=== PATIENT | female | born 1960 | race Caucasian/White ===

== ENCOUNTER → 2021-01-24 12:16 | Outpatient (BNVA) | payer SELFPAY | PROVIDERS: Visit Provider Nurse Practitioner Family | DX: M25.571 Pain in right ankle and joints of right foot (principal); M25.561 Pain in right knee; M17.11 Unilateral primary osteoarthritis, right knee; M19.071 Primary osteoarthritis, right ankle and foot | CPT/HCPCS: 73562; 73610 ==

== ENCOUNTER → 2021-02-05 15:17 | Outpatient (BNVA) | payer OTHER, SELFPAY | PROVIDERS: PCP Family Medicine; Referring Provider Family Medicine; Visit Provider Orthopaedic Surgery | DX: M75.50 Bursitis of unspecified shoulder (principal); M75.90 Shoulder lesion, unspecified, unspecified shoulder | CPT/HCPCS: 73030 ==

== ENCOUNTER → 2021-06-06 08:59 | Outpatient (BNVA) | payer OTHER, SELFPAY | PROVIDERS: PCP Family Medicine; Visit Provider Orthopaedic Surgery | DX: Z01.812 Encounter for preprocedural laboratory examination (principal); Z20.822 Contact with and (suspected) exposure to COVID-19 | CPT/HCPCS: 87635 ==

== ENCOUNTER 2021-06-12 09:07 | Observation (INO) | payer OTHER, SELFPAY ==
[2021-05-30 10:47] VITALS: BMI 37.1
--- NOTE | 2021-05-30 16:49 | ANES.PREANE2 ---
Pre-Anesthetic Assessment Pre-Anesthetic Assessment: Height/Weight: Height 1.5 m Weight 83.461 kg Proposed Procedure: Operation Date: 06/12/21 07:00 Proposed Procedures p Total Knee Arthroplasty 33015 M17.11(Right) - Gaston Childers MD Was Beta Vicky taken within 24 hours: N/A Was Clonidine taken within 24 hours: N/A Social: Social History: No alcohol and No tobacco Exam: Pre-Anes Outpt Exam: alert, oriented x 3 and regular rate & rhythm Airway: Submandibular: WNL Cervical ROM: WNL MP: 2 Dentition: Chipped Pulmonary: Pulmonary: Asthma and Sleep apnea Metabolic: Metabolic: Morbid obesity and Thyroid Musc/skel: Musc/skel: OA/DJD Anesthetic Plan: ASA status: 3 Anesthesia: Regional (specify below) (SAB with adductor blk) Risk of > 500 ml blood loss (7ml/kg in children): No PFSH Anesthesia PFSH: Medical History Asthma Bursitis and tendinitis of shoulder region GERD (gastroesophageal reflux disease) Hyperlipidemia Hypothyroid Migraine Surgical History H/O arthroscopic knee surgery right H/O elbow surgery right History of section x2 Family History Father Diabetes Stroke CAD (coronary artery disease) Asthma Mother Dementia CAD (coronary artery disease) Brother Asthma Autism Social History Smoking and tobacco status: never smoked Second hand smoke exposure: Yes Smoking risk assessment/counseling performed?: Yes Alcohol intake: former Year of sobriety/quit date alcohol: 1998 Lives independently: Yes Household members: children Marital status: Current occupational status: employed Pets and animals: Yes History of recent travel: No Current gender identity: Female Data Anesthesia Cardiac Studies: No Data to Display
[2021-06-12] VITALS (17 sets, daily range): BP systolic 95–149; BP diastolic 2–88; PULSE 56–92; RESP 16–20; TEMP 36.1–37; O2SAT 93–100
[2021-06-12 06:05] LABS: OR HCG Qualitative Urine Negative (Negative)
[2021-06-12] MEDS: sodium chloride 0.9% 1,000 ML 30 ML IV (06:05)
[2021-06-12] MEDS: CELEcoxib 200 mg Capsule 400 MG PO ×2 (06:08)
[2021-06-12] MEDS: oxyCODONE 20 mg ER (12 HR) Tablet PO (06:09)
[2021-06-12] MEDS: acetaminophen 500 mg Tablet 1000 MG PO ×3 (06:10→17:08)
[2021-06-12] MEDS: midazolam 1 mg/mL INJ 2 mL 2 MG IVP (06:30)
--- NOTE | 2021-06-12 06:40 | P.ANESUD_ITS ---
Pre-Anesthetic Update Pre-Anesthetic Assessment: Date of Surgery/Procedure: 06/12/21 Preop Julia gnosis: Osteoarthritis Right knee Proposed Procedure: Operation Date: 06/12/21 07:00 Proposed Procedures p Total Knee Arthroplasty 17674 M17.11(Right) - Gaston Childers MD Any changes to Pre-Anesthetic Assessment?: No Last Intake: Intake Last Liquid Date 06/11/21 Last Liquid Time 21:00 Last Solid Date 06/11/21 Last Solid Time 20:15 Labs Last 48hrs: Laboratory Results - last 48 hr 06/12/21 05:44 Urine HCG, Qual Negative Vitals: Temperature 98.1 F 06/12/21 05:55 Temperature Source Temporal Artery S can 06/12/21 05:55 Pulse Rate 75 06/12/21 05:55 Respiratory Rate 16 06/12/21 06:09 Respiratory Effort 06/12/21 06:09 Respiratory Depth Normal 06/12/21 06:09 Respiratory Patter n 06/12/21 06:09 Blood Pressure 149/88 06/12/21 05:55 Blood Pressure Shannon n 108 06/12/21 05:55 Pulse Oximetry 99 06/12/21 06:09 Oxygen Delivery Me thod 06/12/21 05:55 Exam: Pre-Anes Outpt Exam: alert, oriented x 3, clear to auscultation bilaterally and regular rate & rhythm Cardiac Studies: No Data to Display
--- NOTE | 2021-06-12 06:41 | ANES.PROC ---
Anesthesia Procedures Procedure/Date: 06/12/21 Nerve Block ^: Nerve Block 1: Main Anesthesia: general anesthesia Time Out Performed: No Consent: requested by attending/covering physician, from patient, risks and benefits reviewed and patient agrees to proceed Nerve block location: adductor canal (R) Anesthesia monitors applied: pulse oximetry, EKG, BP cuff and oxygen Nerve block position: supine Anesthetic Used: ropivicaine 0.5% and with decadron (4 mg) Amount of anesthesia used (mL): 30 Ultrasound used to: recognize landmarks and visualize and ID femerol nerve Nerve Stimulator Used?: No Interscalene/Femoral BLK: 4 stimuplex 21 g needle used for position and inplane approach, visualize local anesthetic spread and no vascular puncture identified Injection: neg aspiration of heme Patient Tolerated Procedure: well Complications: none
--- NOTE | 2021-06-12 06:50 | P.HP_ITS ---
Same Day Surgery H&P Indication for Procedure/HPI DATE OF PROCEDURE: June 12, 2021 CHIEF COMPLAINT/INDICATIONFOR SURGICAL PROCEDURE: Severe osteoarthritis right knee. Patient with severe pain with weightbearing and unable to work. Here for elective right total knee arthroplasty PREOP DIAGNOSIS: Osteoarthritis Right knee PLANNED PROCEDRUE: Operation Date: 06/12/21 07:00 Proposed Procedures p Total Knee Arthroplasty 11647 M17.11(Right) - Gaston Childers MD Medications/Allergies* Home Medications Medication Instructions Recorded Confirmed Type famotidine 20 mg tablet 20 mg PO DAILY 12/06/20 06/12/21 History budesonide-formoterol HFA 160 2 puff INHALATION BID 03/27/21 06/12/21 History mcg-4.5 mcg/actuation aerosol inhaler montelukast [Singulair] 10 mg PO QPM 06/12/21 06/12/21 History Allergies/Adverse Reactions Allergy/AdvReac Type Severity Reaction Status Date / Time zolmitriptan [From Zomig] Allergy Severe brain Verified 06/12/21 05:47 swelling Pertinent History/Comorbid Conditions* Medical History (Updated 03/27/21 @ 12:04 by Amaris Andrade MD) Asthma Bursitis and tendinitis of shoulder region GERD (gastroesophageal reflux disease) Hyperlipidemia Hypothyroid Migraine Surgical History (Updated 12/26/20 @ 09:51 by Amaris Andrade MD) H/O arthroscopic knee surgery right H/O elbow surgery right History of section x2 Family History (Updated 12/06/20 @ 09:36 by Laury Melo LPN) Diabetes Father CAD (coronary artery disease) Father Mother Autism Brother Dementia Mother Stroke Father Asthma Father Brother Social History Smoking and tobacco status: never smoked Second hand smoke exposure: Yes Smoking risk assessment/counseling performed?: Yes Alcohol intake: former Year of sobriety/quit date alcohol: 1998 Lives independently: Yes Household members: children Marital status: Current occupational status: employed Pets and animals: Yes History of recent travel: No Current gender identity: Female Pertinent Exam Findings alert, oriented x 3, clear to auscultation bilaterally and regular rate & rhythm Recommendations Surgery/Procedure today Coding Level of Care Code Acute Registered Pharmacist for Jamil Rajan
[2021-06-12] MEDS: tranexamic acid 1,000 mg/10mL SDV 1000 MG IRRIGATION (07:35)
[2021-06-12] MEDS: EPINEPHrine 1 mg/mL INJ XX (07:36)
[2021-06-12] MEDS: ketorolac 30 mg/mL INJ IM (07:36)
--- NOTE | 2021-06-12 08:56 | XR_ITS ---
WS: [id number] Exam: XR knee RT 1-2V 65566 Date/Time of Exam: 06/12/2021 8:58 AM Reason For Exam: Right Total Knee arthroplasty A total knee prosthesis is in place in excellent position. Postoperative changes in the adjacent soft tissues. XR/XR knee RT 1-2V 99172 IMPRESSION: 1. Total knee replacement in excellent position.
--- NOTE | 2021-06-12 08:57 | PM.OP ---
Operative Report Date of procedure: June 12, 2021 Pre-op Diagnosis: Osteoarthritis Right knee Post-op diagnosis: same Post-op Findings: Same Procedure Done: Right total knee arthroplasty Implants: [employer] total knee arthroplasty components were used includin) Size 3 triathalon cruciate retaining femoral component 2) Size 3 Tritanium tibial component 3) 29 mm /9 mm thickness Tritanium asymetric patella 4) Size 3/9 mm thickness CS tibial bearing insert Pathology: none sent Surgeon: Gaston Childers Anesthesia: General and Nerve Block (Adductor canal block) Estimated blood loss (mL): 200 Findings: Patient had eburnated bone over the medial femoral patella and trochlea Condition: stable Disposition: PACU Procedure: The patient was taken to the operating room. Patient was given 1 g of tranexamic acid . The above anesthesia provided by the anesthesia service. A timeout was performed. The patient was prepped and draped in the usual fashion with the lower extremity exposed. A anterior incision was made, midline, from a point proximal to the patella to the distal tibial tubercle. The knee was entered through a medial parapatellar approach. The patella could be displaced laterally and the knee flexed. The patellar fat pad was resected to provide better visibility. Retractors were placed medially and laterally adjacent to the tibial plateau. The femoral canal was drilled in line with the longitudinal axis of the femur. Intramedullary femoral guide for used to make a distal femoral cut in 5 degrees of valgus, resecting 8 mm from the more prominent condyle. Next the extra medullary tibial guide was placed in alignment with the longitudinal axis of the tibia. The cutting guides were set to remove just over 9 mm from the high tibial plateau. The proximal tibia was then cut. The femoral measuring guide was then placed over the distal femur. Rotation was verified checking the relationship of the guide to the condyle and the trochlear groove. The femur was measured and cut for the desired femoral component. The desired tibial baseplate was then chosen. A trial reduction with the femur tibial baseplate and polyethylene was done, assuring that the knee was stable throughout full motion. Ligament balancing a release of the deep medial collateral ligament and removal of medial osteophyte.The tibia was prepared for the tibial baseplate. Patellar thickness was then measured. The patella was cut removing articular cartilage and prepared for appropriate size patellar button. surfaces were cleaned with a gentamicin/tranexamic acid solution. The femur tibia and patella were then press-fit into place. The posterior capsule and collateral ligaments were then injected with a solution of 100 mL of 0.2% ropivacaine, 1 mL of a 1:1000 epinephrine solution, 30 mg of Toradol, and 1 g of tranexamic acid. final polyethylene component was then snapped into place into the tibia. The extensor retinaculum was closed with a running 1 Stratafix.. The subcutaneous tissues were closed with 2-0 Vicryl and the skin was closed with a running 4-0 Stratafix. The wound was covered with a Dermabond Prinio dressing. It was covered with 4xrs and a compressive Tubigauae was applied. The patient was taken to recovery room in stable condition.
[2021-06-12] MEDS: sodium chloride 0.9% 1,000 ML 100 ML IV ×2 (10:08→19:48)
[2021-06-12] MEDS: levothyroxine 112 mcg Tablet PO (10:08)
[2021-06-12] MEDS: CELEcoxib 200 mg Capsule PO ×2 (10:08→22:30)
[2021-06-12] MEDS: gabapentin 300 mg Capsule PO ×2 (10:08→17:08)
[2021-06-12] MEDS: sennosides-docusate Tablet 2 TAB PO ×2 (10:08→17:08)
[2021-06-12] MEDS: famotidine 20 mg Tablet PO (10:08)
[2021-06-12] MEDS: ondansetron 2 mg/ML SDV 2 mL 4 MG IVP ×2 (12:51→23:31)
--- NOTE | 2021-06-12 13:12 | ANE.PACU2 ---
Inpatient post-anesthesia follow up: Airway intact: Yes Vital signs: Temperature 97.7 F Pulse Rate 82 Respiratory Rate 16 Blood Pressure 113/78 Pulse Oximetry 96 Oxygen Delivery Me thod Room Air Oxygen Flow Rate 8 Fraction of Inspir ed Oxygen Hydration adequate: Yes Nausea and vomiting: No Pain level: 3 Mental status: Baseline
[2021-06-12] MEDS: montelukast sodium 10 mg Tablet PO (17:08)
[2021-06-12] MEDS: oxyCODONE 5 mg IR Tab/Cap PO (17:08)
[2021-06-12] MEDS: albuterol 8 gm MDI 2 PUFF INHALATION (20:16)
--- NOTE | 2021-06-12 20:49 | PC.NURSE ---
i reported low temp and pulse to nurse 97.4 56
[2021-06-12 22:43] LABS: Glucose Point of Care 129 mg/dL (70-110)
--- NOTE | 2021-06-12 22:58 | CTR_ITS ---
PROCEDURE INFORMATION: Exam: CT Head Without Contrast Exam date and time: 06/12/2021 10:58 PM Age: 60 years old Clinical indication: Visual disturbance; Additional info: Vision changes/slurring TECHNIQUE: Imaging protocol: Computed tomography of the head without contrast. Radiation optimization: All CT scans at this facility use at least one of these dose optimization techniques: automated exposure control; mA and/or kV adjustment per patient size (includes targeted exams where dose is matched to clinical indication); or iterative reconstruction. COMPARISON: No relevant prior studies available. RADIATION DOSE METRICS: Total DLP (mGy-cm): 748.86 FINDINGS: Brain: No acute intracranial hemorrhage or mass effect. No definite acute infarct by CT. MRI could be more sensitive/specific for detection, as clinically directed. Cerebral ventricles: Ventricle size is normal for age. Paranasal sinuses: Included paranasal sinuses are essentially clear. Mastoid air cells: No significant acute finding. Vasculature: Vascular calcifications in the internal carotid and vertebral basilar systems. Bones/joints: No definite acute skull fracture. CT/CT head wo con* 90729 IMPRESSION: 1. No acute intracranial hemorrhage or mass effect. 2. No definite acute infarct by CT, see above. 3. Other findings discussed above. Radiation Dose CTDIVOL = (mGy): DLP = 748.86 (mGy-cm)
--- NOTE | 2021-06-12 23:41 | PC.NURSE ---
Pt at shift change and initial assessment behavior was WNL, only pt complaint was dizziness intermittently. During a med pass patient seemed very dazed/confused and was slurring words and trailing off sentences. Pt stated she felt weird, and very dizzy. Pt could not look up to give me direct eye contact without wincing. Pt looked cross-eyed on examination, pupils sluggish. Extremity function WNL, and patient oriented to name, place. Was asked twice the year to which she responded 2000 each time. No pain meds have been given since 1699. Vitals from the beginning of the night had been trending down since dayshift with HR in the 50s and BP 95/62. At time of event pt BP 130/78 HR 56. Charge nurse notified and assessed patient as well to confirm findings and the doctor was called. Head CT ordered. Pt at this time, okay - still nauseous and vomiting. Zofran given. Awaiting CT results. Will monitor closely.
[2021-06-13] VITALS (12 sets, daily range): BP systolic 94–113; BP diastolic 47–71; PULSE 65–102; RESP 14–18; TEMP 36.3–37; O2SAT 93–100
[2021-06-13 03:00] LABS: Hemoglobin 10.4 g/dL (11.5-15.3)
[2021-06-13] MEDS: oxyCODONE 5 mg IR Tab/Cap PO ×3 (05:14→20:11)
[2021-06-13] MEDS: sodium chloride 0.9% 1,000 ML 100 ML IV ×2 (05:16→15:14)
[2021-06-13] MEDS: CELEcoxib 200 mg Capsule PO ×2 (08:31→22:42)
[2021-06-13] MEDS: acetaminophen 500 mg Tablet 1000 MG PO ×2 (08:32→17:39)
[2021-06-13] MEDS: famotidine 20 mg Tablet PO (08:32)
[2021-06-13] MEDS: levothyroxine 112 mcg Tablet PO (08:32)
[2021-06-13] MEDS: gabapentin 300 mg Capsule PO ×2 (08:32→17:39)
[2021-06-13] MEDS: sennosides-docusate Tablet 2 TAB PO ×2 (08:32→17:39)
[2021-06-13] MEDS: ondansetron 2 mg/ML SDV 2 mL 4 MG IVP (08:35)
[2021-06-13] MEDS: albuterol 8 gm MDI 2 PUFF INHALATION ×2 (08:46→19:40)
--- NOTE | 2021-06-13 10:24 | PC.CHAP ---
Pastoral Care Encounter/Spiritual Assessment Type of Contact [] Declined tank hoop bender visit [] Patient/Family/Request visit [] Outpatient visit [] Follow-up visit [] Physician referral [] Code/Alert [x] Routine visit [] Staff referral [] Actively dying [] Patient sleeping [] Family support [] [] Out of room [] Palliative care [] [x] Receiving care in room [] Pre-surgical visit [] Trauma [] Long length of stay [] ICU visit [] Other: Relational/Emotional Strength [x] Patient feels connected with others/family/visitors/staff [] Distress [] Loneliness/isolation [] Abandonment Spirituality of Patient [x] Person of Pauline [] Attends Evangelical of their Pauline [x] Believes in Prayer [] Reads Bible or Synagogue materials [] There are Spiritual issues to be addressed Laundry Route Driver Interventions [x] Prayer [x] Active listening [x] Non-anxious presence [x] Spiritual/emotional support [] Crisis/trauma care [x] Spiritual counseling [] Bereavement support [] Provided bereavement packet [] Provided Bible/devotional materials [] Provided toy/stuffed animal, coloring book to patient or family member [] Provided Communion [] Anointing/[place] [] Salvation [x] Completed spiritual assessment [] Other: Impact on Illness or Injury [] Angry [] Fearful [x] Anxious [] Often cries [] Exhaustion [] Unable to work [] Unable to attend pentecostalism [] Unable to walk/stand [] Unable to read [] Unable to drive [] Unable to eat/drink [] Unable to sleep [] Unable to be with family [] Patient intubated [] Other: Summary Surgery removed toe going to need some rehabhas a good attitude feels good going home and rehab from there Time spent with patient 10 mins
--- NOTE | 2021-06-13 17:36 | P.PN_ITS ---
Subjective Subjective: Interval history: Trudi's nausea has resolved. She has been up with therapy. No specific complaints. Vitals/I&O/Wt Last Vital Signs Temp 98.6 F 06/13/21 15:53 Pulse 65 06/13/21 15:53 Resp 14 06/13/21 15:53 BP 103/55 06/13/21 15:53 Pulse Ox 99 06/13/21 15:53 06/13/21 06/13/21 06/13/21 06:59 14:59 22:59 Intake Total 1380 / 3045 660 / 660 996.667 / 1656.667 Output Total 500 / 1100 600 / 600 Balance 880 / 1945 660 / 660 396.667 / 1056.667 Physical Exam Narrative: EXAM NARRATIVE: Right knee incision clean and dry. No swelling right knee or calf Data : 06/13/21 02:52 A&P Assessment and plan (1) Status post right knee replacement: Continue to work with therapy. Should be ready for discharge tomorrow. Family considering intermediate. Status: Acute Attestations Medical Necessity Statement*: Needs additional therapy prior to discharge. Will try for discharge tomorrow. Coding Level of Care Code Acute Tire Servicer for Jamil Rajan Diagnoses Status post right knee replacement Z96.651
[2021-06-13] MEDS: montelukast sodium 10 mg Tablet PO (17:39)
[2021-06-13] MEDS: tizanidine 4 mg Tablet 2 MG PO (20:06)
[2021-06-14] VITALS (10 sets, daily range): BP systolic 88–97; BP diastolic 50–60; PULSE 67–88; RESP 14–18; TEMP 36.5–36.7; O2SAT 96–100
[2021-06-14] MEDS: sodium chloride 0.9% 1,000 ML 100 ML IV (01:21)
[2021-06-14] MEDS: albuterol 8 gm MDI 2 PUFF INHALATION (07:40)
--- NOTE | 2021-06-14 07:41 | PM.PN ---
Subjective Subjective: Interval history: Pain control good. No further nausea Vitals/I&O/Wt Last Vital Signs Temp 97.7 F 06/14/21 03:20 Pulse 74 06/14/21 03:20 Resp 16 06/14/21 03:20 BP 92/60 06/14/21 03:20 Pulse Ox 99 06/14/21 03:20 06/13/21 06/14/21 06/14/21 22:59 06:59 14:59 Intake Total 1476.667 / 2136.667 1360 / 3496.667 Output Total 600 / 600 400 / 1000 Balance 876.667 / 1536.667 960 / 2496.667 Physical Exam Narrative: EXAM NARRATIVE: The knee incision is clean and free of drainage. There is no swelling in the calf or thigh. Data : 06/13/21 02:52 A&P Assessment and plan (1) Status post right knee replacement: is doing quite well. Originally in clinic plans were made for discharge home with daughter however she has now changed her mind and is looking for a custodial. Thus far we have been unable to find an accepting custodial facility. Status: Acute Attestations Medical Necessity Statement*: No need for ongoing hospitalization. Awaiting discharge plans per community mental health social worker Coding Level of Care Code Acute Complex Care Nurse for Jamil Rajan Diagnoses Status post right knee replacement Z96.651
--- NOTE | 2021-06-14 07:54 | PM.DCS ---
Discharge Providers Date of Admission: 06/12/21 09:07 Date of Discharge: June 15, 2021 Attending Provider at Admission: Gaston Childers MD Attending Provider at Discharge: Gaston Childers MD Primary Care Provider: Fernando Burns DO Diagnoses at Discharge Discharge Diagnosis (1) Status post right knee replacement: Status: Acute Reason for Visit Reason for Visit: total knee Hospital Course Hospital Course The patient tolerated surgery well. They remained hemodynamically stable. They was begun on aspirin and foot pumps for DVT prophylaxis. The patient was mobilized with therapy beginning the day of surgery and by the first postoperative day independent with the walker over short distances. Initial plans were for discharge home to the care of her family however once admitted the patient requested transfer to a nursing home facility. Over several days efforts were made to find an accepting facility or no such facility could be obtained. She ultimately was discharged on June 14, 2021. Physical Exam Narrative: EXAM NARRATIVE: On the day of discharge his knee incision was clean. They had no drainage. There is minimal swelling in the thigh and knee and the calf. No distal neurovascular deficits were noted Discharge Data Data Completed and Pending: Completed Studies During Hospitalization Category Date Time Status CT head wo con* 7 0450 Stat Cat Scan 06/12/21 22:58 Completed XR knee RT 1-2V 7 4159 Routine Exams 06/12/21 08:56 Completed Vitals: Last Vital Signs Temp 97.7 F 06/14/21 03:20 Pulse 82 06/14/21 07:43 Resp 16 06/14/21 07:40 BP 92/60 06/14/21 03:20 Pulse Ox 96 06/14/21 07:40 Discharge Plan Discharge Patient Disposition: Home Condition: Stable Prescriptions: New acetaminophen 500 mg Tablet 1,000 mg PO Q8H 14 Days Qty: 84 RF: 0 celecoxib 200 mg Capsule 200 mg PO Q12H 14 Days Qty: 28 RF: 0 gabapentin 300 mg Capsule 300 mg PO BID 7 Days Qty: 14 RF: 0 oxycodone 5 mg Tablet 5 mg PO Q4H PRN (Reason: Moderate Pain) 7 Days Qty: 30 RF: 0 aspirin 325 mg Tablet,Delayed Release (Dr/Ec) 325 mg PO DAILY Qty: 30 RF: 0 Continued famotidine 20 mg tablet 20 mg PO DAILY RF: 0 budesonide-formoterol [Symbicort] 160-4.5 mcg/actuation HFA aerosol inhaler 2 puff inhalation BID RF: 0 levothyroxine 112 mcg tablet 112 mcg PO DAILY Qty: 90 RF: 3 tizanidine 2 mg capsule 2 mg PO Q6H PRN (Reason: muscle spasticity) Qty: 30 RF: 11 mupirocin 2 % ointment 1 applic topical BID Qty: 22 RF: 0 albuterol sulfate [Ventolin HFA] 90 mcg/actuation HFA aerosol inhaler 2 inh inhalation Q8H PRN (Reason: bronchospasm) Qty: 8.5 RF: 5 ipratropium-albuterol 0.5 mg-3 mg(2.5 mg base)/3 mL solution for nebulization See Rx Instructions .ROUTE .COMPLEX Qty: 180 RF: 3 Singulair 10 mg Tablet 10 mg PO QPM RF: 0 Discharge Orders: Discharge Order (Routine); Ordered 06/14/21 Ordered By: Gatson Childers Other Ambulatory Orders: DME: Sami (Order) Location: None Selected Ordered By: Gaston Childers DME: Walker (Order) Location: None Selected Ordered By: Gaston Childers Physical Therapy Eval and Treat Outpatient (Order) Timeframe: 3 Weeks Facility: [facility] - Location: Physical Therapy Ordered By: Gaston Childers Referrals: Outpatient Physical Therapy at [facility] [Other] (The Outpatient Physical therapy will call you to setup at date & time for therapy. They can set it up for therapy at the [facility].) Gaston Childers MD [Physician] - 06/18/21 3:15 pm Discharge Diet: Advance as tolerated Discharge Activity: Limit activity as instructed Patient Instructions: Aspirin (By mouth), Gabapentin (By mouth), Celecoxib (By mouth), Joint Replacement Surgery (DC), Opioid Safety Activity Restrictions/Additional Instructions: Okay to shower Keep Tubigauze sleeve in place for swelling. Okay to remove for hygiene. Apply FirstIce up to 20 min/hr for pain and swelling Take Celebrex twice a day for the next 15 days for pain , discontinue other anti-inflammatories Take Neurontin twice a day for 7 days. Take Tylenol 500mg (1-2 tabs) as needed 3 times a day for mild pain take oxycodone for breakthrough pain. Exercises per physical therapy. May weight-bear as tolerated on total knee arthroplasty Discharge Attestations Time Spent in Discharge Care*: other Quality Metrics Clinical Quality Measures During this hospital stay, did patient experience: None Coding Level of Care Code Acute [facility] KEILA note Diagnoses Status post right knee replacement Z96.651
[2021-06-14] MEDS: levothyroxine 112 mcg Tablet PO (08:22)
[2021-06-14] MEDS: sennosides-docusate Tablet 2 TAB PO ×2 (08:22→16:54)
[2021-06-14] MEDS: gabapentin 300 mg Capsule PO ×2 (08:22→16:54)
[2021-06-14] MEDS: famotidine 20 mg Tablet PO (08:22)
[2021-06-14] MEDS: oxyCODONE 5 mg IR Tab/Cap PO ×2 (08:22→14:21)
[2021-06-14] MEDS: tizanidine 4 mg Tablet 2 MG PO (08:22)
[2021-06-14] MEDS: acetaminophen 500 mg Tablet 1000 MG PO ×2 (09:07→16:54)
[2021-06-14] MEDS: CELEcoxib 200 mg Capsule PO ×2 (09:07→21:35)
[2021-06-14] MEDS: polyethylene glycol 3350 Pkt 17 gm PO (14:21)
--- NOTE | 2021-06-14 15:00 | PC.CHAP ---
Pastoral Care Encounter/Spiritual Assessment Type of Contact [] Declined farm operations technical director visit [] Patient/Family/Request visit [] Outpatient visit [xx] Follow-up visit [] Physician referral [] Code/Alert [xx] Routine visit [] Staff referral [] Actively dying [] Patient sleeping [] Family support [] [] Out of room [] Palliative care [] [] Receiving care in room [] Pre-surgical visit [] Trauma [] Long length of stay [] ICU visit [] Other: Relational/Emotional Strength [xx] Patient feels connected with others/family/visitors/staff [] Distress [] Loneliness/isolation [] Abandonment Spirituality of Patient [xx] Person of Pauline [] Attends Hindu of their Pauline [xx] Believes in Prayer [] Reads Bible or Jehovah'S Witness materials [] There are Spiritual issues to be addressed Graphics Specialist Interventions [xx] Prayer [xx] Active listening [xx] Non-anxious presence [] Spiritual/emotional support [] Crisis/trauma care [] Spiritual counseling [] Bereavement support [] Provided bereavement packet [] Provided Bible/devotional materials [] Provided toy/stuffed animal, coloring book to patient or family member [] Provided Communion [] Anointing/[place] [] Salvation [xx] Completed spiritual assessment [] Other: Impact on Illness or Injury [] Angry [] Fearful [] Anxious [] Often cries [] Exhaustion [xx] Unable to work [] Unable to attend pentecostal [xx] Unable to walk/stand [] Unable to read [] Unable to drive [] Unable to eat/drink [] Unable to sleep [] Unable to be with family [] Patient intubated [] Other: Summary Patient stated she is concerned her insurance won't cover therapy in a [facility] facility which she will need after discharge from hospital due to knee replacement and fact that she/family live a primitive homestead lifestyle which requires walking up steps and to an outhouse. She stated she is discussing her situation with health care social worker and medical staff to try to get physical therapy necessary for her recovery. Time spent with patient 7 minutes
[2021-06-14] MEDS: montelukast sodium 10 mg Tablet PO (16:54)
[2021-06-15] VITALS (9 sets, daily range): BP systolic 93–115; BP diastolic 56–74; PULSE 76–91; RESP 15–19; TEMP 36.7–36.9; O2SAT 95–100
[2021-06-15] MEDS: oxyCODONE 5 mg IR Tab/Cap PO ×2 (00:32→16:51)
[2021-06-15] MEDS: acetaminophen 500 mg Tablet 1000 MG PO ×2 (01:09→09:42)
[2021-06-15] MEDS: albuterol 8 gm MDI 2 PUFF INHALATION (08:51)
[2021-06-15] MEDS: gabapentin 300 mg Capsule PO (09:42)
[2021-06-15] MEDS: famotidine 20 mg Tablet PO (09:42)
[2021-06-15] MEDS: levothyroxine 112 mcg Tablet PO (09:42)
[2021-06-15] MEDS: CELEcoxib 200 mg Capsule PO (09:42)
--- NOTE | 2021-06-15 16:56 | PC.NURSE ---
PT HAS DONE WELL FOR ME TODAY. PT HAS HAD MINIMAL COMPLAINTS OF PAIN. PT IS DOING GOOD GETTING UP AND AMBULATING WITH WALKER. PT WILL DISCHARGE TODAY. PAIN MEDICATION WAS GIVEN TO PT. DISCHARGE PAPERWORK GONE OVER WITH PT. ALL QUESTIONS ANSWERED. IV HAS BEEN REMOVED. PT TOLERATED WELL. JUST WAITING FOR PTS RIDE. THEN THIS NURSE AND THE AID WILL ASSIST PT OUT OF HOSPITAL WITH HER BELONGINGS (WALKER & BEDSIDE COMMODE).
--- NOTE | 2021-06-17 14:35 | PC.SOCIAL ---
discharge follow up call made, spoke with patient. patient reports she is in a lot of pain. went over new medications. the pharmacy didn't given patient aspirin, gabapentin, or celebrex. ticket writer called [facility], they have those medications ready, ladjill on the phone was unsure why patient didn't get the medications when she picked up the oxycodone. ticket writer let patient know the medications are ready, her daughter will pick those medications up today. patient is aware of follow up appointment 10-[address] Childers. Patient is using ice as directed. patient denies concerns with incision.
== END 2021-06-15 17:21 | disposition home or self-care (01) ==
LOC: MEDSURG 09:08
PROVIDERS: Admitting Provider Orthopaedic Surgery; PCP Family Medicine; Visit Provider Orthopaedic Surgery
PROC: (CPT 27447; principal; 2021-06-12 07:00)
DX: M17.11 Unilateral primary osteoarthritis, right knee (principal); G47.30 Sleep apnea, unspecified; J45.909 Unspecified asthma, uncomplicated; E66.01 Morbid (severe) obesity due to excess calories; Z68.37 Body mass index [BMI] 37.0-37.9, adult; E03.9 Hypothyroidism, unspecified; E78.5 Hyperlipidemia, unspecified; Z82.49 Family history of ischemic heart disease and other diseases of the circulatory system; Z83.3 Family history of diabetes mellitus
CPT/HCPCS: 27447; 36415; 36416; 64447; 70450; 73560; 76942; 81025; 82962; 84703; 85018; 94640; 96374; 97110; 97116; 97161; 97165; 97530; 97535; C1776; G0378; J0171; J0690; J1100; J1580; J1885; J2250; J2370; J2405; J2704; J2795; J3010; J3490; J3535; J7030

== ENCOUNTER 2021-07-15 06:00 | Outpatient (RCR) | payer OTHER, SELFPAY | END 2021-08-13 23:59 | disposition home or self-care (01) | LOC: GPT 06:00 | PROVIDERS: PCP Family Medicine; Visit Provider Orthopaedic Surgery | DX: Z96.651 Presence of right artificial knee joint (principal); M17.11 Unilateral primary osteoarthritis, right knee | CPT/HCPCS: 97032; 97110; 97112; 97116; 97161; 97164; 97530; 97760 ==

== ENCOUNTER 2021-08-14 06:00 | Outpatient (RCR) | payer OTHER, SELFPAY | END 2021-08-19 23:59 | disposition home or self-care (01) | LOC: GPT 06:00 | PROVIDERS: PCP Family Medicine; Visit Provider Orthopaedic Surgery | DX: M17.11 Unilateral primary osteoarthritis, right knee (principal); Z96.651 Presence of right artificial knee joint | CPT/HCPCS: 97110 ==

== ENCOUNTER → 2021-08-21 14:27 | Outpatient (BNVA) | payer OTHER, SELFPAY | PROVIDERS: PCP Family Medicine; Visit Provider Orthopaedic Surgery | DX: Z96.651 Presence of right artificial knee joint (principal) | CPT/HCPCS: 73560; 73565 ==

== ENCOUNTER → 2022-04-30 09:38 | Outpatient (BNVA) | payer OTHER, SELFPAY | PROVIDERS: PCP Family Medicine; Visit Provider Nurse Practitioner Family | DX: E78.2 Mixed hyperlipidemia (principal); E03.9 Hypothyroidism, unspecified | CPT/HCPCS: 80053; 80061; 84443; 85025 ==

== ENCOUNTER 2022-05-21 09:20 | Outpatient (CLI) | payer OTHER, SELFPAY ==
--- NOTE | 2022-05-21 09:33 | MM_ITS ---
WS: [id number] Bilateral screening 3D tomosynthesis digital mammogram, 05/21/2022 Clinical Data: SCREENING Comparison: None. Findings: The breast parenchymal pattern shows fat replacement. No spiculated masses or clustered calcification s are seen. There are no secondary signs of carcinoma. There is an enlarged lymph node in the left ax illa seen on the MLO view measuring 3.3 cm. There are calcifications within this lymph node. Recommen d left ML view and left axillary ultrasound. MM/[place] [id number] Impression: 1. Negative bilateral mammogram unchanged. 2. Recommend annual screening mammograms. BIRADS: 0-Incomplete: Need additional imaging evaluation FOLLOW UP: See Report The CAD baggage checker was used.
== END 2022-05-21 09:21 | disposition home or self-care (01) ==
PROVIDERS: PCP Family Medicine; Visit Provider Family Medicine
DX: Z12.31 Encounter for screening mammogram for malignant neoplasm of breast (principal); M21.612 Bunion of left foot; M21.611 Bunion of right foot
CPT/HCPCS: 73630; 77063; 77067

== ENCOUNTER 2022-06-25 12:29 | Outpatient (CLI) | payer OTHER, SELFPAY ==
--- NOTE | 2022-06-25 13:08 | US_ITS ---
WS: [id number] Left breast ultrasound, 06/25/2022 Clinical Data: ABNORMAL MAMMOGRAM Comparison: Mammograms, 05/21/2022, left breast mammogram 06/25/2022 Findings: In the left axilla there is a typical lymph node which measures 2.26 x 0.79 x 2.50 cm. No abnormal ma sses are seen. Calcifications are seen. US/US breast LT limited* [id number] Impression: 1. Left axillary lymph node. 2. Return to annual screening mammograms BIRADS: 2-Benign FOLLOW UP: 1 Year Follow-up
--- NOTE | 2022-06-25 13:08 | MM_ITS ---
WS: [id number] Left breast diagnostic 3D tomosynthesis digital mammogram, 06/25/2022 Clinical Data: ABNORMAL MAMMOGRAM Comparison: 05/21/2022 Findings: The lymph node in the left axilla as well imaged. Although enlarged it shows no abnormal characterist ics there are no abnormal calcifications or irregularities associated with this lymph node MM/[place] [id number] Impression: 1. Left axillary lymph node 2. Left breast ultrasound will be performed BIRADS: 2-Benign FOLLOW UP: See Report The CAD order checker packer processer was used.
== END 2022-06-25 12:30 | disposition home or self-care (01) ==
PROVIDERS: PCP Family Medicine; Visit Provider Nurse Practitioner Family
DX: R92.8 Other abnormal and inconclusive findings on diagnostic imaging of breast (principal)
CPT/HCPCS: 76642; 77061

== ENCOUNTER → 2022-07-24 16:55 | Outpatient (BNVA) | payer OTHER, SELFPAY | PROVIDERS: PCP Family Medicine; Visit Provider Nurse Practitioner Family | DX: R11.10 Vomiting, unspecified (principal); R19.7 Diarrhea, unspecified | CPT/HCPCS: 87400 ==

== ENCOUNTER → 2022-09-24 08:54 | Outpatient (BNVA) | payer OTHER, SELFPAY | PROVIDERS: PCP Family Medicine; Visit Provider Specialist | DX: M54.16 Radiculopathy, lumbar region (principal); M25.552 Pain in left hip | CPT/HCPCS: 73502 ==

== ENCOUNTER → 2022-11-17 08:58 | Outpatient (BNVA) | payer OTHER, SELFPAY | PROVIDERS: PCP Family Medicine; Visit Provider Specialist | DX: M18.12 Unilateral primary osteoarthritis of first carpometacarpal joint, left hand (principal) | CPT/HCPCS: 73130 ==

== ENCOUNTER 2022-11-17 10:47 | Outpatient (CLI) | payer OTHER, SELFPAY | END 2022-11-17 10:48 | disposition home or self-care (01) | LOC: SPT 10:47 | PROVIDERS: PCP Family Medicine; Visit Provider Specialist | DX: Z46.89 Encounter for fitting and adjustment of other specified devices (principal); M18.12 Unilateral primary osteoarthritis of first carpometacarpal joint, left hand | CPT/HCPCS: 97760; L3924 ==

== ENCOUNTER → 2022-12-30 10:22 | Outpatient (BNVA) | payer OTHER, SELFPAY | PROVIDERS: PCP Family Medicine; Visit Provider Nurse Practitioner Family | DX: E78.2 Mixed hyperlipidemia (principal); J45.20 Mild intermittent asthma, uncomplicated | CPT/HCPCS: 80053; 80061; 85025 ==

== ENCOUNTER → 2023-02-23 14:28 | Outpatient (BNVA) | payer MEDICAID, SELFPAY | PROVIDERS: PCP Family Medicine; Visit Provider Family Medicine | DX: R10.9 Unspecified abdominal pain (principal); M54.50 Low back pain, unspecified; M54.16 Radiculopathy, lumbar region | CPT/HCPCS: 81003 ==

== ENCOUNTER → 2023-04-20 11:03 | Outpatient (BNVA) | payer MEDICAID, SELFPAY | PROVIDERS: PCP Family Medicine; Visit Provider Specialist | DX: M17.12 Unilateral primary osteoarthritis, left knee; G89.29 Other chronic pain | CPT/HCPCS: 73560; 73565 ==

== ENCOUNTER → 2023-05-21 13:43 | Outpatient (BNVA) | payer MEDICAID, SELFPAY | PROVIDERS: PCP Family Medicine; Referring Provider Family Medicine; Visit Provider Orthopaedic Surgery | DX: Z01.818 Encounter for other preprocedural examination; M48.062 Spinal stenosis, lumbar region with neurogenic claudication; M43.16 Spondylolisthesis, lumbar region | CPT/HCPCS: 36415; 72100; 80053; 81001; 85025 ==

== ENCOUNTER → 2023-06-03 09:40 | Outpatient (BNVA) | payer MEDICAID, SELFPAY | PROVIDERS: PCP Family Medicine; Visit Provider Family Medicine | DX: Z01.818 Encounter for other preprocedural examination (principal) | CPT/HCPCS: 81000 ==

== ENCOUNTER 2023-06-10 16:46 | Observation (INO) | payer MEDICAID, SELFPAY ==
[2023-06-09 09:17] VITALS: BMI 44.4
[2023-06-10] VITALS (17 sets, daily range): BP systolic 108–143; BP diastolic 56–103; PULSE 63–88; RESP 16–20; TEMP 36.2–36.7; O2SAT 92–100
--- NOTE | 2023-06-10 | XR_ITS ---
WS: [id number] Lumbar spine, C-arm fluoroscopy views, 06/10/2023 Clinical Data: L4-5 decompression, or pic Comparison: Lumbar spine, 05/21/2023 Findings: Dr. Ace performed a lumbar decompression. Impression: Lumbar decompression.
--- NOTE | 2023-06-10 13:25 | W.PM.OPSUD ---
Surgery/Procedure H&P Update DATE OF PROCEDURE: June 10, 2023 DATE H&P PERFORMED: 06/03/23 H&P UPDATE INFORMATION: I have reviewed H&P completed within last 30 days, I have examined patient prior to procedure and No changes to prior documentation PREOP DIAGNOSIS: L4-5 spinal listhesis, left lumbosacral radiculopathy PLANNED PROCEDURE: Operation Date: 06/10/23 14:00 Proposed Procedures p Lumbar Spine Decompression/left L4-5 minimally invasive decompression(Left) - Isaac Ace DO
[2023-06-10] MEDS: sodium chloride 0.9% 1,000 ML 30 ML IV (13:28)
[2023-06-10] MEDS: ceFAZolin 2,000 MG in sodium chloride 0.9% (plus) 50 ML 100 MG IV ×2 (13:36→20:18)
--- NOTE | 2023-06-10 13:43 | ANES.PREANE2 ---
Pre-Anesthetic Assessment Height/Weight: Height 1.5 m Weight 99.79 kg Temp Pulse Resp BP Pulse Ox O2 Del Method 97.3 F L 72 18 143/103 96 Room Air 06/10/23 13:06/10/23 13:06/10/23 13:06/10/23 13:09 06/10/23 13:06/10/23 13:09 Preop Diagnosis: L4-5 spinal listhesis, left lumbosacral radiculopathy Operation Date: 06/10/23 14:00 Proposed Procedures p Lumbar Spine Decompression/left L4-5 minimally invasive decompression(Left) - Isaac Ace, DO Familial anesthetic complications: none Was Beta Vicky taken within 24 hours: N/A Was Clonidine taken within 24 hours: N/A Last intake: Intake Last Liquid Date 06/09/23 Last Liquid Time 19:00 Last Solid Date 06/09/23 Last Solid Time 19:00 Social No alcohol and No tobacco Exam alert, oriented x 3, clear to auscultation bilaterally and regular rate & rhythm Airway Submandibular: within normal limits Cervical ROM: within normal limits Mallampati: Class II Dentition: chipped Pulmonary Asthma and Sleep Apnea GI Gastroesophageal Reflux Disease Metabolic Hyperlipidemia, Morbid Obesity and Thyroid Disease Musc/skel Lower Back Pain and Osteoarthritis/DJD Anesthetic Plan ASA status: 3 Anesthesia: General Medications/Allergies Home Medications Medication Instructions Recorded Confirmed Last Taken Type CMC brace-left hand #1 ea 11/17/22 05/21/23 Unknown Rx levothyroxine 112 mcg tablet 112 mcg PO DAILY #90 tabs 12/30/22 06/09/23 06/10/23 Rx (Synthroid) miscellaneous medical supply 1 ea miscellaneous DIRECTED #1 01/05/23 06/09/23 05/18/23 Rx ea budesonide-formoterol HFA 160 2 puff inhalation BID #10.2 grams 02/23/23 06/09/23 06/10/23 Rx mcg-4.5 mcg/actuation aerosol inhaler (Symbicort) ascorbate calcium (vitamin C) 500 500 mg PO DAILY 03/04/23 06/09/23 05/18/23 History mg tablet biotin 1 mg capsule 1 mg PO DAILY 03/04/23 06/09/23 05/18/23 History black cohosh 200 mg capsule 200 mg PO DAILY 03/04/23 06/09/23 05/18/23 History cholecalciferol (vitamin D3) PO DAILY 03/04/23 05/21/23 05/18/23 History famotidine 20 mg tablet (Pepcid) 20 mg PO DAILY 03/04/23 06/09/23 06/09/23 History mecobalamin (vitamin B12) 1,000 1,000 mcg PO DAILY 03/04/23 06/09/23 05/18/23 History mcg chewable tablet multivitamin (Daily Multi-Vitamin 1 tab PO DAILY 03/04/23 06/09/23 05/18/23 History tablet) tocophersolan (vitamin E TPGS) 75 unit PO 03/04/23 05/21/23 05/18/23 History unit/mL oral drops Ventolin HFA 90 mcg/actuation 2 inh inhalation Q8H PRN 04/20/23 06/09/23 06/06/23 Rx aerosol inhaler (albuterol sulfate) bronchospasm #18 grams Allergies Allergy/AdvReac Type Severity Reaction Status Date / Time zolmitriptan [From Zomig] Allergy Severe brain Verified 06/03/23 09:29 swelling Current Medications Generic Name Dose Route Start Last Admin Trade Name Freq PRN Reason Stop Dose Admin Sodium Chloride 1,000 mls @ 30 mls/hr 06/10/23 12:45 06/10/23 13:28 Sodium Chloride 0.9% IV 06/11/23 12:44 30 mls/hr .Q24H JESSICA Administration PFSH Anesthesia Medical History Asthma Bursitis and tendinitis of shoulder region GERD (gastroesophageal reflux disease) Hyperlipidemia Hypothyroid Migraine Tendinopathy of left rotator cuff Tendinopathy of right rotator cuff Surgical History H/O arthroscopic knee surgery right H/O elbow surgery right History of section x2 Family History Father Diabetes Stroke CAD (coronary artery disease) Asthma Mother Dementia CAD (coronary artery disease) Brother Asthma Autism Social History Smoking and tobacco status: never smoked Alcohol intake: former Year of sobriety/quit date alcohol: 1998 Substance/Drug Use: never Lives independently: Yes Household members: children Marital status: Current occupational status: employed Pets and animals: Yes Do you think of yourself as: Straight/Heterosexual Current gender identity: Female Data Anesthesia Cardiac Studies: No Data to Display
[2023-06-10] MEDS: lidocaine-epi 2% 20 mL INJ INJECTION (14:26)
--- NOTE | 2023-06-10 14:39 | P.OP_ITS ---
Operative Report Date of procedure: June 10, 2023 Pre-op diagnosis: Lumbar stenosis with neurogenic claudication Post-op diagnosis: same Procedure done: L4-5 laminectomy with partial facetectomy Surgeon: Isaac Ace DO Information Technology Advisor: Bj Lafleur Information Technology Advisor: The surgical scrub technician, Bj Lafleur, ALYSSA was needed for his expertise under the microscope. He was important and necessary throughout the procedure to complete in a safe and timely manner. He assisted with patient positioning prepping and draping tissue retraction suctioning of the operative field protection of the dural sac and tissue closure Estimated blood loss (mL): 25 Complications: dural tear Procedure: L4-5 laminectomy with partial facetectomy Patient is brought to the operative suite. After undergoing anesthesia they are placed in the prone position. All areas of impingement are well padded. Patient is then prepped and draped in the normal sterile fashion. A skin incision is made over the l4/5 level. This is confirmed under c-arm guidance. A series of dilators are passed and the tubular retractor is docked on the L4 lamina. A bovie is used to clear the soft tissue off the lamina and the L 4/5 facet joint. A high speed justine is then used to perform the laminectomy and take down the medial aspect of the L 4/5 facet joint. A kerrison rongeure was then used to take down the remaining lamina and smooth the edge of the laminectomy up to the point where the ligamentum flavum attaches. Attention was then brought to the medial aspect of the facet joint. The remaining medial aspect of the superior and inferior aspect of the facet joint were taken down with the kerrison from the pedicle of L4 to L 5. The facet joint had significant hypertrophy. Attention was then brought to the Ligamentum Flavum. The ligament was taken down from the lamina of L4 to L5 and out medially to the remaining facet joint. The ligament was thick and scarred down to the dura. The dura was then exposed. There was a small tear that occurred. This was later patched with DuraGen and there was no leaking after this. And DuraSeal was placed at the end as well. The L4 nerve was then traced with a curette out the L4/5 foramen and found to be adequately decompressed. The L5 nerve was traced with a curette around the L5 pedicle. The lateral recess was opened with a kerrison helping to further decompress the L5 nerve. Wound is then irrigated copiously with saline and surgiflo is used to stop any bleeding. The tubular retractor is removed and the wound is closed with vicryl and monocryl suture. Glue is then used to protect the wound. A sterile dressing is then placed. Patient was then placed in the supine position and transferred to the PACU in stable condition.
[2023-06-10] MEDS: HYDROcodone-acetaminophen 5-325 mg Tablet 2 TAB PO (15:39)
--- NOTE | 2023-06-10 16:39 | ANE.PACU2 ---
Inpatient post-anesthesia follow up: Airway intact: Yes Vital signs: Temperature 97.2 F Pulse Rate 66 Respiratory Rate 18 Blood Pressure 134/90 Pulse Oximetry 94 Oxygen Delivery Me thod Room Air Oxygen Flow Rate 6 Fraction of Inspir ed Oxygen Hydration adequate: Yes Nausea and vomiting: No Pain level: 3 Mental status: Baseline
[2023-06-10] MEDS: lactated ringers 1,000 ML 90 ML IV (17:40)
[2023-06-10] MEDS: ketorolac 30 mg/mL INJ IVP (17:40)
[2023-06-10] MEDS: docusate sodium 100 mg Capsule PO (17:41)
[2023-06-10] MEDS: budesonide 0.5 mg/2 mL Neb INHALATION (20:06)
[2023-06-10] MEDS: albuterol 2.5 mg/3 mL Neb INHALATION (20:06)
[2023-06-11] VITALS (8 sets, daily range): BP systolic 106–114; BP diastolic 65–71; PULSE 61–84; RESP 16–18; TEMP 36.4–36.6; O2SAT 92–97
[2023-06-11] MEDS: ketorolac 30 mg/mL INJ IVP (01:16)
[2023-06-11] MEDS: lactated ringers 1,000 ML 90 ML IV (05:19)
[2023-06-11] MEDS: ceFAZolin 2,000 MG in sodium chloride 0.9% (plus) 50 ML 100 MG IV (05:20)
[2023-06-11] MEDS: HYDROcodone-acetaminophen 5-325 mg Tablet PO (07:19)
--- NOTE | 2023-06-11 07:57 | P.PN_ITS ---
Subjective Subjective: POD 1 Patient reports some fuzziness dizziness had a headache through the night. She states her numbness has improved in her legs. She reports back pain. Vitals/I&O/Wt Last Vital Signs Temp 97.6 F 06/11/23 04:06 Pulse 67 06/11/23 07:51 Resp 16 06/11/23 07:51 BP 112/71 06/11/23 07:51 Pulse Ox 96 06/11/23 07:51 O2 Del Method Room Air 06/10/23 20:00 O2 Flow Rate 6 06/10/23 14:41 06/10/23 06/11/23 06/11/23 22:59 06:59 14:59 Intake Total 100 / 150 1050 / 1200 Balance 100 / 130 1050 / 1180 Weight last 48 hrs Weight 220 lb Physical Exam Narrative: Patient presents alert and oriented x3 with a good general appearance normal mood and affect. Normal coordination normal stability. Mild tenderness around the incisional site with the incision appear to be clean and dry. No signs of erythema or drainage. No signs of infection. Patient denies any fevers or c hills. 5/5 motor strength both lower extremities with negative straight leg raise bilaterally. Calves are supple no medial thigh tenderness. Pulses are 2+ at the dorsalis pedis and posterior tibial region. Good capillary refill throughout normal sensation light touch both lower extremities. A&P Assessment and plan (1) Status post lumbar laminectomy: Discussed with the patient if she has a headache to lay flat. Encourage caffeinated products. Physical therapy to work with mobilization. As long as she remains medically stable we will work towards discharge home. We will see her back in the office in 1 week's time for wound check. Discussed at length with her the incidental durotomy and if she has symptoms of headache to lay flat at home as well. Encouraged her to take the incentive spirometer for pulmonary toilet. (2) Incidental durotomy: Attestations Medical Necessity Statement*: Discharge home later this morning if medically stable and no headaches. Coding Level of Care Code Acute Code for Chg Fwd Diagnoses Status post lumbar laminectomy Z98.890 Incidental durotomy G97.41
[2023-06-11] MEDS: albuterol 2.5 mg/3 mL Neb INHALATION ×2 (08:35→11:09)
[2023-06-11] MEDS: levothyroxine 112 mcg Tablet PO (08:44)
[2023-06-11] MEDS: ascorbic acid 500 mg Tablet PO (08:44)
[2023-06-11] MEDS: famotidine 20 mg Tablet PO (08:44)
[2023-06-11] MEDS: docusate sodium 100 mg Capsule PO (08:44)
[2023-06-11] MEDS: cyanocobalamin 1,000 mcg Tablet 1000 MCG PO (08:44)
[2023-06-11] MEDS: multivitamin therapeutic Tablet 1 TAB PO (08:45)
--- NOTE | 2023-06-11 10:12 | PC.CHAP ---
Pastoral Care Encounter/Spiritual Assessment Type of Contact [] Declined mercury cracking tester visit [] Patient/Family/Request visit [] Outpatient visit [] Follow-up visit [] Physician referral [] Code/Alert [x] Routine visit [] Staff referral [] Actively dying [] Patient sleeping [] Family support [] [] Out of room [] Palliative care [] [x] Receiving care in room [] Pre-surgical visit [] Trauma [] Long length of stay [] ICU visit [] Other: Relational/Emotional Strength [x] Patient feels connected with others/family/visitors/staff [] Distress [] Loneliness/isolation [] Abandonment Spirituality of Patient [x] Person of Pauline [] Attends Nondenominational of their Pauline [x] Believes in Prayer [] Reads Bible or Uatsdin materials [] There are Spiritual issues to be addressed [place] Interventions [x] Prayer [x] Active listening [x] Non-anxious presence [x] Spiritual/emotional support [] Crisis/trauma care [x] Spiritual counseling [] Bereavement support [] Provided bereavement packet [] Provided Bible/devotional materials [] Provided toy/stuffed animal, coloring book to patient or family member [] Provided Communion [] Anointing/[place] [] Salvation [x] Completed spiritual assessment [] Other: Impact on Illness or Injury [] Angry [] Fearful [] Anxious [] Often cries [] Exhaustion [] Unable to work [] Unable to attend anabaptist [] Unable to walk/stand [] Unable to read [] Unable to drive [] Unable to eat/drink [] Unable to sleep [] Unable to be with family [] Patient intubated [] Other: Summary infection not sure well go home when infection clears up has a good attitude Time spent with patient 10 mins
== END 2023-06-11 11:30 | disposition home or self-care (01) ==
LOC: MEDSURG 06-11 08:00
PROVIDERS: Admitting Provider Orthopaedic Surgery; PCP Family Medicine; Visit Provider Orthopaedic Surgery
PROC: (CPT 63005; principal; 2023-06-10 13:50)
DX: M48.062 Spinal stenosis, lumbar region with neurogenic claudication (principal); G97.41 Accidental puncture or laceration of dura during a procedure; G47.30 Sleep apnea, unspecified; K21.9 Gastro-esophageal reflux disease without esophagitis; J45.909 Unspecified asthma, uncomplicated; E78.5 Hyperlipidemia, unspecified; E66.01 Morbid (severe) obesity due to excess calories; Z68.41 Body mass index [BMI] 40.0-44.9, adult; E03.9 Hypothyroidism, unspecified
CPT/HCPCS: 63047; 72020; 76000; 94640; 97116; 97161; G0378; J0690; J1100; J1885; J2405; J2704; J2710; J3010; J3490; J7030; J7120; J7613; J7626

== ENCOUNTER → 2023-08-19 13:43 | Outpatient (BNVA) | payer MEDICAID, SELFPAY | PROVIDERS: PCP Family Medicine; Visit Provider Nurse Practitioner | DX: Z96.651 Presence of right artificial knee joint (principal); M25.561 Pain in right knee | CPT/HCPCS: 73560; 73565 ==

== ENCOUNTER 2023-09-03 10:35 | Outpatient (CLI) | payer MEDICAID, SELFPAY ==
--- NOTE | 2023-09-03 10:37 | MM_ITS ---
WS: [id number] BILATERAL SCREENING DIGITAL TOMOSYNTHESIS MAMMOGRAM WITH CAD HISTORY: SCREENING COMPARISON: 06/25/2022 and 05/21/2022 Bilateral CC and MLO views with tomosynthesis and synthetic mammography submitted. Computer aided det ection analyzed. Breast composition: There are scattered areas of fibroglandular density. No suspicious masses, microc alcifications or architectural distortion. Intramammary lymph nodes. Benign calcifications. IMPRESSION: MM/[place] [id number] BI-RADS: 2-Benign FOLLOW UP: 1 Year Follow-up
== END 2023-09-03 10:36 | disposition home or self-care (01) ==
LOC: RAD 10:35
PROVIDERS: PCP Family Medicine; Visit Provider Family Medicine
DX: Z12.31 Encounter for screening mammogram for malignant neoplasm of breast (principal)
CPT/HCPCS: 77063; 77067

== ENCOUNTER → 2023-09-30 15:17 | Outpatient (BNVA) | payer MEDICAID, SELFPAY | PROVIDERS: PCP Family Medicine; Visit Provider Specialist | DX: M17.12 Unilateral primary osteoarthritis, left knee (principal); M25.561 Pain in right knee; Z68.41 Body mass index [BMI] 40.0-44.9, adult | CPT/HCPCS: 73560; 73565 ==

== ENCOUNTER → 2023-10-27 14:52 | Outpatient (BNVA) | payer MEDICAID, SELFPAY | PROVIDERS: PCP Family Medicine; Visit Provider Orthopaedic Surgery | DX: Z47.89 Encounter for other orthopedic aftercare; R20.2 Paresthesia of skin; M54.50 Low back pain, unspecified | CPT/HCPCS: 72100 ==

== ENCOUNTER 2024-01-05 14:04 | Outpatient (CLI) | payer MEDICAID, SELFPAY ==
--- NOTE | 2024-01-05 14:30 | MR_ITS ---
WS: [id number] MRI LUMBAR SPINE NONCONTRAST TECHNIQUE: Sagittal T1, T2 and STIR imaging. Axial T1 and T2 imaging. CLINICAL INFORMATION: back pain COMPARISON: Outside MRI 04/27/2023 FINDINGS: Tiny disc protrusions in the cervical spine on the wire sawyer imaging at C4-C5 and C5-C6 with mild central canal stenosis. Mild lumbar curve. Grade 1 anterolisthesis L4 on L5. L1-L2: Mild annular bulging. Moderate facet arthropathy. Spinal canal and foramen are patent. L2-L3: Mild annular bulging with a small RIGHT subarticular protrusion. Slight effacement of the vent ral thecal sac. Slight narrowing of the RIGHT subarticular recess with moderate facet arthropathy. Mi ld RIGHT foraminal narrowing. LEFT foramen is patent. L3-L4: Mild disc bulging with endplate ridging. Moderate facet arthropathy. Mild LEFT and no signific ant RIGHT foraminal narrowing. L4-L5: Grade 1 anterolisthesis unchanged. Mild central canal stenosis with impingement of the subarti cular recess bilaterally. Moderate facet arthropathy. Foramen are patent. Susceptibility artifact fro m prior postoperative changes in the lamina. L5-S1: No significant disc bulging. Moderate facet arthropathy. Spinal canal and foramen are patent. Visualized pelvic bony structures: Normal. Paravertebral soft tissues: Normal. Partially visualized nabothian cyst in the cervix. IMPRESSION: 1. Mild lumbar curve. Grade 1 anterolisthesis L4 on L5 is unchanged with prior laminoplasty changes in the posterior elements 2. Mild central canal stenosis L4-5 with narrowing of the subarticular recess appears unchanged. 3. Disc bulging L2-3 appears slightly progressed with a RIGHT subarticular protrusion. This impinges the RIGHT subarticular recess and traversing RIGHT L3 nerve root with mild central canal stenosis. 4. Moderate facet arthropathy L4-L5 and L5-S1. 5. Small disc protrusions in the cervical spine at C4-C5 and C5-C6. This could be further evaluated cervical spine MRI.
== END 2024-01-05 14:05 | disposition home or self-care (01) ==
LOC: RAD 14:04
PROVIDERS: PCP Family Medicine; Visit Provider Orthopaedic Surgery
DX: M54.50 Low back pain, unspecified (principal); M48.061 Spinal stenosis, lumbar region without neurogenic claudication; M47.816 Spondylosis without myelopathy or radiculopathy, lumbar region
CPT/HCPCS: 72148

== ENCOUNTER → 2024-01-07 15:15 | Outpatient (BNVA) | payer MEDICAID, SELFPAY | PROVIDERS: PCP Family Medicine; Visit Provider Internal Medicine Pulmonary Disease | DX: J45.20 Mild intermittent asthma, uncomplicated (principal); G47.33 Obstructive sleep apnea (adult) (pediatric); R06.02 Shortness of breath | CPT/HCPCS: 36415; 82785; 85025; 86003 ==

== ENCOUNTER 2024-01-20 11:21 | Outpatient (CLI) | payer MEDICAID, SELFPAY ==
[2024-01-20 11:39] VITALS: PULSE 98; RESP 18; O2SAT 98
[2024-01-20] MEDS: albuterol 2.5 mg/3 mL Neb INHALATION (11:39)
[2024-01-20 11:43] VITALS: PULSE 99
== END 2024-01-20 11:22 | disposition home or self-care (01) ==
PROVIDERS: PCP Family Medicine; Visit Provider Internal Medicine Pulmonary Disease
DX: R06.02 Shortness of breath (principal)
CPT/HCPCS: 94060; 94618; 94726; 94729; J7613

== ENCOUNTER → 2024-04-21 14:01 | Outpatient (BNVA) | payer MEDICAID, SELFPAY | PROVIDERS: PCP Family Medicine; Visit Provider Orthopaedic Surgery | DX: M48.061 Spinal stenosis, lumbar region without neurogenic claudication | CPT/HCPCS: 36415; 72110; 80053; 81003; 81015; 85025; 87077; 87086; 87186 ==

== ENCOUNTER 2024-05-16 17:00 | Outpatient (CLI) | payer MEDICAID, SELFPAY ==
[2024-05-16 18:06] LABS: Charge for UA Resulting for Rev
[2024-05-16 18:08] LABS: Bilirubin Urine Negative (Negative); Blood Urine Negative (Negative); Glucose Urine UA Negative (Normal); Ketones Urine Trace (Negative); Leukocyte Esterase Urine 1+ (Negative); Nitrate Urine Negative (Negative); Protein Urine Trace (Negative); Urine Appearance Clear (CLEAR); Urine Color Yellow (Yellow); pH Urine 5.5 (5-7)
[2024-05-16 18:47] LABS: RBC Urine 0-4 /hpf (0-2); Specific Gravity, Urine 1.032 (1.005-1.030); Squamous Epithelial Cell Urine 15-25 /hpf (0-5); UA Manual Slide Review YES
[2024-05-16 18:48] LABS: Add Urine Culture? No; Bacteria Urine TRACE /hpf; Mucus Urine 2+ /hpf
== END 2024-05-16 17:01 | disposition home or self-care (01) ==
PROVIDERS: PCP Family Medicine; Visit Provider Orthopaedic Surgery
DX: M43.16 Spondylolisthesis, lumbar region (principal); M47.27 Other spondylosis with radiculopathy, lumbosacral region; M47.816 Spondylosis without myelopathy or radiculopathy, lumbar region; M54.50 Low back pain, unspecified
CPT/HCPCS: 81003; 81015

== ENCOUNTER → 2024-06-09 12:42 | Outpatient (BNVA) | payer MEDICAID, SELFPAY | PROVIDERS: PCP Family Medicine; Visit Provider Nurse Practitioner Family | DX: S80.862A Insect bite (nonvenomous), left lower leg, initial encounter (principal); W57.XXXA Bitten or stung by nonvenomous insect and other nonvenomous arthropods, initial encounter | CPT/HCPCS: 86160; 86618; 86666; 86668; 86757 ==

== ENCOUNTER 2024-06-14 06:00 | Outpatient (RCR) | payer MEDICAID, SELFPAY | END 2024-07-14 23:59 | disposition home or self-care (01) | LOC: GPT 06:00 | PROVIDERS: PCP Family Medicine; Visit Provider Orthopaedic Surgery | DX: M54.9 Dorsalgia, unspecified (principal); G89.29 Other chronic pain | CPT/HCPCS: 97112; 97140; 97161 ==

== ENCOUNTER → 2024-07-14 16:58 | Outpatient (BNVA) | payer MEDICAID, SELFPAY | PROVIDERS: PCP Family Medicine; Visit Provider Orthopaedic Surgery | DX: M43.16 Spondylolisthesis, lumbar region (principal) | CPT/HCPCS: 36415; 80053; 81001; 85025 ==

== ENCOUNTER 2024-07-15 06:00 | Outpatient (RCR) | payer MEDICAID, SELFPAY | END 2024-08-13 23:59 | disposition home or self-care (01) | LOC: GPT 06:00 | PROVIDERS: PCP Family Medicine; Visit Provider Orthopaedic Surgery | DX: M54.9 Dorsalgia, unspecified (principal); G89.29 Other chronic pain | CPT/HCPCS: 97110; 97112; 97140 ==

== ENCOUNTER → 2024-08-03 09:55 | Outpatient (BNVA) | payer MEDICAID, SELFPAY | PROVIDERS: PCP Family Medicine; Visit Provider Family Medicine | DX: Z01.818 Encounter for other preprocedural examination (principal) | CPT/HCPCS: 81003 ==

== ENCOUNTER → 2024-08-15 15:27 | Outpatient (BNVA) | payer MEDICAID, SELFPAY | PROVIDERS: PCP Family Medicine; Visit Provider Family Medicine | DX: Z01.818 Encounter for other preprocedural examination (principal) | CPT/HCPCS: 80053; 81000; 85025 ==

== ENCOUNTER 2024-08-22 19:54 | Inpatient (IN) | payer MEDICAID, SELFPAY ==
[2024-08-22] VITALS (18 sets, daily range): BP systolic 95–162; BP diastolic 62–97; PULSE 75–83; RESP 14–20; TEMP 36.2–36.4; O2SAT 90–100; BMI 44.8; BMI 46.2
[2024-08-22] MEDS: sodium chloride 0.9% 1,000 ML 30 ML IV (12:54)
[2024-08-22 12:59] LABS: Basophils % 0.5 %; Eosinophils # 0.2 10^3/uL (0.0-0.8); Eosinophils % 3.6 %; Hematocrit 41.8 % (36-47); Lymphocytes # 2.3 10^3/uL (0.8-4.8); Lymphocytes % 38.6 %; Mean Corpuscular HGB Conc 32.8 g/dL (30-55); Mean Corpuscular Hemoglobin 31.8 pg (27-33); Mean Platelet Volume 9.8 fL (7.4-10.4); Monocytes # 0.5 10^3/uL (0.2-0.9); Monocytes % 8.6 %; Neutrophils # 2.95 10^3/uL (1.8-7.7); Neutrophils % 48.5 %; Nucleated Red Blood Cells % 0 %; Platelet Count 232 10^3/cmm (157-399); Red Blood Count 4.31 10^6/uL (3.85-5.65); Red Cell Distribution Width 13.1 % (12.1-15.1); White Blood Count 6.07 10^3/uL (3.29-11.43)
--- NOTE | 2024-08-22 13:01 | P.ANESASSM_ITS ---
Pre-Anesthetic Assessment Height/Weight: Height 4 ft 11 in Weight 222 lb Temp Pulse Resp BP Pulse Ox O2 Del Method 97.3 F L 82 17 162/97 96 Room Air 08/22/24 12:41 08/22/24 12:41 08/22/24 12:41 08/22/24 12:41 08/22/24 12:41 08/22/24 12:41 Preop Diagnosis: L4-5 spondylolisthesis; lumbar stenosis neurogenic claudication Operation Date: 08/22/24 14:00 Proposed Procedures p Spinal Fusion PSF(Not Applicable) - Isaac Ace DO s Posterior Lumbar Interbody Fusion PLIF(Not Applicable) - Isaac Ace DO Was Beta Vicky taken within 24 hours: N/A Was Clonidine taken within 24 hours: N/A Last intake: Intake Last Liquid Date 08/22/24 Last Liquid Time 03:00 Last Solid Date 08/21/24 Last Solid Time 20:00 Social No alcohol and No tobacco Exam alert, oriented x 3, clear to auscultation bilaterally and regular rate & rhythm Airway Submandibular: within normal limits Cervical ROM: within normal limits Mallampati: Class I Dentition: full Anesthetic Plan ASA status: 3 Anesthesia: General Other: Patient states that she has experienced PONV in the past NPO since yesterday Recent infection last week, placed on antibiotics which she has completed. Currently is asymptomatic, afebrile History of asthma, controlled with inhalers GERD on Pepcid Denies any cardiac issues Labs reviewed and acceptable for procedure METs greater than 4 Plan for GETA Medications/Allergies Home Medications Medication Instructions Recorded Confirmed Last Taken Type miscellaneous medical supply 1 ea miscellaneous DIRECTED #1 01/05/23 08/18/24 08/18/24 Rx ea mecobalamin (vitamin B12) 1,000 1,000 mcg PO DAILY 03/04/23 08/18/24 08/21/24 History mcg chewable tablet multivitamin (Daily Multi-Vitamin 1 tab PO DAILY 03/04/23 08/18/24 08/21/24 History tablet) cholecalciferol (vitamin D3) 25 25 mcg PO DAILY 06/11/23 08/18/24 08/18/24 History mcg (1,000 unit) capsule (Vitamin D3) cpap supplies #1 ea 08/05/23 07/14/24 Unknown Rx Hinged Knee Brace #1 ea 09/30/23 07/14/24 Unknown Rx inhalational spacing device #1 ea 01/04/24 07/14/24 Unknown Rx (Aerochamber MV spacer) ipratropium 0.5 mg-albuterol 3 mg See Rx Instructions .Route 01/05/24 08/18/24 08/22/24 Rx (2.5 mg base)/3 mL nebulization .COMPLEX #180 mL soln budesonide-formoterol HFA 160 2 puff inhalation BID #10.2 grams 03/16/24 08/18/24 08/22/24 Rx mcg-4.5 mcg/actuation aerosol inhaler (Symbicort) tiotropium bromide 1.25 2 puff inhalation DAILY #4 grams 03/16/24 08/18/24 08/22/24 Rx mcg/actuation mist for inhalation (Spiriva Respimat) diclofenac sodium 1 % topical gel 2 g topical QID #100 grams 04/13/24 08/18/24 08/18/24 Rx Bone Growth Stimulator #1 ea 05/18/24 07/14/24 Unknown Rx albuterol sulfate 90 mcg/actuation 2 puff inhalation Q4H PRN 06/23/24 08/18/24 08/22/24 Rx aerosol inhaler shortness of breath or wheezing #8.5 grams famotidine 20 mg tablet (Pepcid) 40 mg PO BID 08/03/24 08/18/24 08/22/24 History levothyroxine 112 mcg tablet 112 mcg PO DAILY 08/18/24 08/18/24 08/21/24 History montelukast 10 mg tablet 10 mg PO DAILY 08/22/24 08/22/24 08/21/24 History Allergies Allergy/AdvReac Type Severity Reaction Status Date / Time zolmitriptan [From Zomig] Allergy Severe brain Verified 08/18/24 12:59 swelling Current Medications Generic Name Dose Route Start Last Admin Trade Name Freq PRN Reason Stop Dose Admin Sodium Chloride 1,000 mls @ 30 mls/hr 08/22/24 12:45 08/22/24 12:54 Sodium Chloride 0.9% IV 08/23/24 12:44 30 mls/hr .Q24H JESSICA Administration PFSH Anesthesia Medical History BMI 45.0-49.9, adult Acute pain of right knee Tendinopathy of left rotator cuff Tendinopathy of right rotator cuff GERD (gastroesophageal reflux disease) Migraine Hyperlipidemia Hypothyroid Asthma Bursitis and tendinitis of shoulder region Surgical History H/O arthroscopic knee surgery right History of section x2 H/O elbow surgery right Family History Father Diabetes Stroke CAD (coronary artery disease) Asthma Mother Dementia CAD (coronary artery disease) Brother Asthma Autism Social History Smoking and tobacco/nicotine status: never used tobacco/nicotine Alcohol intake: former Year of sobriety/quit date alcohol: 1998 Substance/Drug Use: never Lives independently: Yes Household members: children Marital status: Current occupational status: employed Pets and animals: Yes Do you think of yourself as: Straight/Heterosexual Current gender identity: Female Data Anesthesia 08/22/24 12:50 Short CBC 08/22/24 Range/Units 12:50 WBC 6.07 (3.29-11.43) 10^3/uL Hgb 13.70 (11.27-16.99) g/dL Hct 41.8 (36-47) % MCV 97.0 (85-98) fl Plt Count 232 (157-399) 10^3/cmm Neut % (Auto) 48.5 % Neut # (Auto) 2.95 (1.8-7.7) 10^3/uL Cardiac Studies: 2 No Data to Display
--- NOTE | 2024-08-22 13:56 | W.PM.OPSUD ---
Surgery/Procedure H&P Update DATE OF PROCEDURE: August 22, 2024 DATE H&P PERFORMED: 08/03/24 H&P UPDATE INFORMATION: I have reviewed H&P completed within last 30 days, I have examined patient prior to procedure and No changes to prior documentation PREOP DIAGNOSIS: L4-5 spondylolisthesis; lumbar stenosis neurogenic claudication PLANNED PROCEDURE: Operation Date: 08/22/24 14:00 Proposed Procedures p Spinal Fusion PSF(Not Applicable) - Isaac Ace DO s Posterior Lumbar Interbody Fusion PLIF(Not Applicable) - Isaac Ace DO
[2024-08-22] MEDS: ceFAZolin 2,000 mg SDV 2000 MG IVP ×2 (15:36→23:13)
[2024-08-22] MEDS: lidocaine-epi 1% PF 1:200,000 30 mL SDV INJECTION (16:12)
[2024-08-22] MEDS: VANCOMYCIN ADD-Vantage 1,000 MG VIAL 1000 MG XX (16:46)
[2024-08-22] MEDS: heparin, porcine 1,000 unit/mL INJ 10 mL 10000 UNIT XX (17:20)
--- NOTE | 2024-08-22 18:08 | XR_ITS ---
WS: [id number] Exam: XR lumbar spine 2-3V* [id number] Date/Time of Exam: 08/22/2024 6:08 PM Reason For Exam: OR PICS AP and lateral intraoperative images of the lower lumbar spine are submitted. Images were obtained fo r intraoperative purposes.
--- NOTE | 2024-08-22 18:15 | P.OP_ITS ---
Operative Report Date of procedure: August 22, 2024 Pre-op diagnosis: Lumbar stenosis with neurogenic claudication L4-5 spondylolisthesis Post-op diagnosis: same Procedure done: 1. L4/5 Interbody fusion with posterolateral fusion 2. Instrumentation L4-L5 3. Insertion of Cage at L4/5 4. L4-5 laminectomy with facetectomies 5. use of autograft from same incision 6. allograft 7. Bone marrow aspirate from right iliac crest 8. Use of computer navigation/stereotactic for the spine Surgeon: Isaac Ace DO Estimated blood loss (mL): 150 Procedure: 1. L4/5 Interbody fusion with posterolateral fusion 2. Instrumentation L4-L5 3. Insertion of Cage at L4/5 4. L4-5 laminectomy with facetectomies 5. use of autograft from same incision 6. allograft 7. Bone marrow aspirate from right iliac crest 8. Use of computer navigation/stereotactic for the spine Patient is brought to the operative suite. After undergoing anesthesia, the patient had neuro monitoring attached. Patient was then placed in the prone position on the Casimiro table. All areas of impingement were well-padded. Patient was then prepped and draped in the normal sterile fashion. Skin incision was then made over the L4-L5 disc space. Subperiosteal dissection was made out to the transverse processes of L4 and L5. Next attention was brought to the [employer] bone marrow aspirate kit was used to aspirate bone marrow aspirate. This was done by using the sharp probe to open up the bone. Aspiration was performed and then the blunt probe was then used to dissect down to through the bone tunnel. An aspirating well drawn back a millimeter approximately 20 cc of bone marrow aspirate was used. Admixed with the allograft and autograft bone that will be used. Next attention was brought to placing the computer navigation fiducial. The pins were placed in the right iliac crest. These pins were later removed at the end of the case. The fiducial was then attached to this. The C-arm was then brought in and spun around the patient. The information of the C-arm was then loaded the computer and this was later used for the placement of the pedicle screws. Next attention was brought to placing the pedicle screws. The technique for placing the pedicle screws was to use a drill followed by the gearshift probe. Followed by the ball probe to feel the superior inferior medial lateral joes of the pedicles. Then placement of the screws. Was done at each pedicle. Screws were placed at L4 bilaterally and L5. Next attention was brought to performing the laminectomy ofL4. This was done using the high-speed bur Kerrisons and curettes. Once the lamina was removed and then attention was brought to performing a partial facetectomy on the contralateral side. This was done again using the high-speed bur curettes and Kerrisons. The ligamentum flavum was taken down bilaterally from L4 to L5. Attention was then brought to the facet on the ipsilateral side. The facet was taken down. The L5 nerve was decompressed as it passed around the L5 pedicle. The laminectomy was done for purposes of decompressing the nerve as well as placement of the cage. The L4 nerve was identified as it traversed through the L4 foramen. The thecal sac was identified and retracted. The L4/5 disc base was identified. Using a knife the disc base was opened. And then sequential jass were placed. The first shaver was a 6 and the last shaver was a 9. Using a pituitary and down going curette the endplates were scraped and disc material was removed from the space. Once adequate decompression of the disc base was felt to be had. Osteoamp sponge was packed into the anterior aspect of the disc base. Then a size 10 cage from [employer] was placed after packing osteoamp into the cage. While placing the cage the thecal sac and L5 nerve was protected. C arm was used to ensure that the cages placed in the appropriate position. Attention was then brought to attaching the rods to the screws placed in the L4 bilaterally and L5 bilaterally. Caps were torqued into position. Locking the construct in place. Wound was copiously irrigated and then attention was brought to decorticating the facets and transverse processes laterally. Bone that was taken down from the lamina was used along with osteoamp fibers and sponges were packed into the lateral gutters along the facet joints. This was done bilaterally. Wound was then closed in a layered fashion starting with the thoracolumbar fascia. 0-vicryl was used the sub cutaneous tissue was closed with 2-0 vicryl and skin with 4-0 monocryl. Glue was then used to seal the skin and a steril dressing was applied. Patient was then placed in the supine position. The endotracheal tube was removed and patient was transferred to the PACU in stable condition.
[2024-08-22] MEDS: scopolamine 1.5 Patch 1 PATCH TRANSDERMA (18:57)
--- NOTE | 2024-08-22 20:00 | ANE.PACU2 ---
Inpatient post-anesthesia follow up: Airway intact: Yes Vital signs: Temperature 98.2 F Pulse Rate 84 Respiratory Rate 18 Blood Pressure 106/70 Pulse Oximetry 92 Oxygen Delivery Me thod Room Air Oxygen Flow Rate 1 Fraction of Inspir ed Oxygen Hydration adequate: Yes Nausea and vomiting: No Pain level: 1 Mental status: Baseline
--- NOTE | 2024-08-22 20:00 | PC.NURSE ---
Scopalamine patch present on patient at arrival to [facility] from PACU.
[2024-08-22] MEDS: morphine 4 mg/mL SDV 1 mL 2 MG IVP ×2 (20:06→23:10)
[2024-08-22] MEDS: albuterol 2.5 mg/3 mL Neb INHALATION (22:14)
[2024-08-22] MEDS: lactated ringers 1,000 ML 30 ML IV (23:44)
[2024-08-23] VITALS (16 sets, daily range): BP systolic 93–108; BP diastolic 58–71; PULSE 70–93; RESP 15–18; TEMP 36.4–37; O2SAT 92–98
[2024-08-23] MEDS: morphine 4 mg/mL SDV 1 mL 2 MG IVP (02:09)
[2024-08-23] MEDS: albuterol 2.5 mg/3 mL Neb INHALATION (02:24)
[2024-08-23] MEDS: ceFAZolin 2,000 mg SDV 2000 MG IVP ×2 (06:37→14:04)
--- NOTE | 2024-08-23 07:40 | P.PN_ITS ---
Subjective 2 Subjective: Patient is in bed resting comfortably. Try to get bed last night but could not she said her feet feel numb. However this morning they feel better she is able to move her toes Vitals/I&O/Wt Last Vital Signs Temp 98.6 F 08/23/24 04:39 Pulse 82 08/23/24 04:39 Resp 16 08/23/24 04:39 BP 104/67 08/23/24 04:39 Pulse Ox 95 08/23/24 04:39 O2 Del Method Nasal Cannula 08/23/24 04:39 O2 Flow Rate 2 08/23/24 04:39 08/22/24 08/23/24 08/23/24 22:59 06:59 14:59 Intake Total 1780 / 1780 360 / 2140 Output Total 800 / 800 300 / 1100 Balance 980 / 980 60 / 1040 Weight last 48 hrs Weight 238 lb 3.2 oz Weight 229 lb Weight 222 lb Physical Exam 2 Narrative: Sensation intact moving bilateral lower extremities 5/5 strength. Urinary Catheter Management: Rosen: Cath Placed During This Visit: yes, but has since been removed by the nurse Reason for Continuing Indwelling Catheter: Decision to DC Catheter Urinary Catheter Date of Insertion: 08/22/24 Urinary Catheter Time of Insertion: 15:58 Date Urinary Catheter Removed: 08/23/24 Time Urinary Catheter Discontinued: 06:45 Data 08/22/24 12:50 A&P Assessment and plan (1) Status post lumbar spinal fusion: Postop day #1 lumbar fusion Up with physical therapy Will reevaluate after she gets out of bed. Attestations 2 Medical Necessity Statement*: Pain control Coding Level of Care Code Acute Code for Chg Fwd Diagnoses Status post lumbar spinal fusion Z98.1
[2024-08-23] MEDS: HYDROcodone-acetaminophen 5-325 mg Tablet PO ×4 (07:58→20:45)
[2024-08-23] MEDS: cyanocobalamin 1,000 mcg Tablet 1000 MCG PO (07:59)
[2024-08-23] MEDS: multivitamin therapeutic Tablet 1 TAB PO (07:59)
[2024-08-23] MEDS: montelukast sodium 10 mg Tablet PO (07:59)
[2024-08-23] MEDS: cholecalciferol (vitamin D3) 1,000 unit Tablet 1000 UNIT PO (07:59)
[2024-08-23] MEDS: famotidine 20 mg Tablet 40 MG PO ×2 (07:59→18:05)
[2024-08-23] MEDS: docusate sodium 100 mg Capsule PO ×2 (08:00→18:05)
[2024-08-23] MEDS: levothyroxine 112 mcg Tablet PO (08:00)
[2024-08-23] MEDS: ketorolac 30 mg/mL INJ IVP ×2 (08:00→14:04)
[2024-08-23] MEDS: budesonide 0.5 mg/2 mL Neb INHALATION ×2 (08:27→21:16)
[2024-08-23] MEDS: ipratropium-albuterol 3 mL Neb INHALATION ×4 (08:27→21:16)
--- NOTE | 2024-08-23 10:42 | PC.CHAP ---
Pastoral Care Encounter/Spiritual Assessment Type of Contact [] Declined steam brush operator visit [] Patient/Family/Request visit [] Outpatient visit [] Follow-up visit [] Physician referral [] Code/Alert [x] Routine visit [] Staff referral [] Actively dying [] Patient sleeping [] Family support [] [] Out of room [] Palliative care [] [] Receiving care in room [] Pre-surgical visit [] Trauma [] Long length of stay [] ICU visit [] Other: Relational/Emotional Strength [x] Patient feels connected with others/family/visitors/staff [] Distress [] Loneliness/isolation [] Abandonment Spirituality of Patient [x] Person of Pauline [] Attends Cheondoism of their Pauline [x] Believes in Prayer [] Reads Bible or Church materials [] There are Spiritual issues to be addressed Spot Checker Interventions [x] Prayer [] Active listening [] Non-anxious presence [x] Spiritual/emotional support [] Crisis/trauma care [] Spiritual counseling [] Bereavement support [] Provided bereavement packet [] Provided Bible/devotional materials [] Provided toy/stuffed animal, coloring book to patient or family member [] Provided Communion [] Anointing/[place] [] Salvation [x] Completed spiritual assessment [] Other: Impact on Illness or Injury [] Angry [] Fearful [] Anxious [] Often cries [] Exhaustion [] Unable to work [] Unable to attend yazidism [] Unable to walk/stand [] Unable to read [] Unable to drive [] Unable to eat/drink [] Unable to sleep [] Unable to be with family [] Patient intubated [] Other: Summary Time spent with patient 5 min
[2024-08-23] MEDS: diclofenac 1% Topical Gel 100 gm 1 APPLIC TOPICAL ×3 (11:03→18:08)
[2024-08-24] VITALS: BP 98/55; PULSE 96; RESP 17; TEMP 36.7; O2SAT 91
[2024-08-24] MEDS: HYDROcodone-acetaminophen 5-325 mg Tablet PO ×2 (00:32→13:04)
[2024-08-24] MEDS: ketorolac 30 mg/mL INJ IVP (02:17)
[2024-08-24 03:23] VITALS: BP 95/60; PULSE 78; RESP 17; TEMP 36.5; O2SAT 94
--- NOTE | 2024-08-24 06:27 | P.DS_ITS ---
Discharge Providers Date of Admission: 08/22/24 19:54 Date of Discharge: August 24, 2024 Attending Provider at Admission: Isaac Ace DO Attending Provider at Discharge: Isaac Ace DO Primary Care Provider: Fernando Burns DO Diagnoses at Discharge Discharge Diagnosis (1) Status post lumbar spinal fusion: Status: Acute Physical Exam Narrative: Patient is doing well no complaints at this time. She was up ambulating yesterday well. Urinary Catheter Management: Rosen: Cath Placed During This Visit: yes, but has since been removed by the nurse Reason for Continuing Indwelling Catheter: Decision to DC Catheter Urinary Catheter Date of Insertion: 08/22/24 Urinary Catheter Time of Insertion: 15:58 Date Urinary Catheter Removed: 08/23/24 Time Urinary Catheter Discontinued: 06:45 Discharge Data Studies Completed and Pending Completed Studies During Hospitalization Category Date Time Status XR lumbar spine 2-3V* [id number] Routine Exams 08/22/24 18:08 Completed Laboratory Results WBC 6.07 10^3/uL (3.29-11.43) 08/22/24 12:50 RBC 4.31 10^6/uL (3.85-5.65) 08/22/24 12:50 Hgb 13.70 g/dL (11.27-16.99) 08/22/24 12:50 Hct 41.8 % (36-47) 08/22/24 12:50 MCV 97.0 fl (85-98) 08/22/24 12:50 MCH 31.8 pg (27-33) 08/22/24 12:50 MCHC 32.8 g/dL (30-55) 08/22/24 12:50 RDW 13.1 % (12.1-15.1) 08/22/24 12:50 Plt Count 232 10^3/cmm (157-399) 08/22/24 12:50 MPV 9.8 fL (7.4-10.4) 08/22/24 12:50 Neut % (Auto) 48.5 % 08/22/24 12:50 Lymph % (Auto) 38.6 % 08/22/24 12:50 [place]away % (Auto) 8.6 % 08/22/24 12:50 Eos % (Auto) 3.6 % 08/22/24 12:50 Baso % (Auto) 0.5 % 08/22/24 12:50 Neut # (Auto) 2.95 10^3/uL (1.8-7.7) 08/22/24 12:50 Lymph # (Auto) 2.3 10^3/uL (0.8-4.8) 08/22/24 12:50 [place]away # (Auto) 0.5 10^3/uL (0.2-0.9) 08/22/24 12:50 Eos # (Auto) 0.2 10^3/uL (0.0-0.8) 08/22/24 12:50 Baso # (Auto) 0.0 10^3/uL (0.0-0.1) 08/22/24 12:50 Nucleated RBC % (auto) 0 % 08/22/24 12:50 Nucleated RBCs # 0.0 /100WBC 08/22/24 12:50 Blood Type O Positive 08/22/24 12:50 Rho(D) Type Rh positive 08/22/24 12:50 Antibody Screen Negative 08/22/24 12:50 Vitals Last Vital Signs Temp 97.7 F 08/24/24 03:23 Pulse 78 08/24/24 03:23 Resp 17 08/24/24 03:23 BP 95/60 08/24/24 03:23 Pulse Ox 94 08/24/24 03:23 O2 Del Method Room Air 08/24/24 03:23 O2 Flow Rate 1 08/23/24 08:27 Discharge Plan Discharge Patient Disposition: Home Condition: Stable Prescriptions: New hydrocodone-acetaminophen 5-325 mg tablet 1 - 2 tab PO .Q4-6H Qty: 40 0RF Continued miscellaneous medical supply Misc 1 ea miscellaneous DIRECTED Qty: 1 0RF Rx Instructions: please dispense one nebulizer and tubing. diclofenac sodium 1 % gel 2 g topical QID Qty: 100 3RF Rx Instructions: apply to single elbow, wrist or hand; for hand includes palm/fingers/back of hand multivitamin [Daily Multi-Vitamin] Tablet 1 tab PO DAILY mecobalamin (vitamin B12) 1,000 mcg tablet,chewable 1,000 mcg PO DAILY famotidine [Pepcid] 20 mg tablet 40 mg PO BID (DME) Hinged Knee Brace See Rx Instructions .Route .MEDSUPPLY Qty: 1 0RF Rx Instructions: As directed ipratropium-albuterol 0.5 mg-3 mg(2.5 mg base)/3 mL solution for nebulization See Rx Instructions .ROUTE .COMPLEX Qty: 180 3RF Dose Instruction: USE 1 VIAL PER NEBULIZER EVERY 4 HOURS NEEDED FOR SHORTNESS OF BREATH Rx Instructions: USE 1 VIAL PER NEBULIZER EVERY 4 HOURS NEEDED FOR SHORTNESS OF BREATH Spiriva Respimat 1.25 mcg/actuation mist 2 puff inhalation DAILY Qty: 4 3RF budesonide-formoterol [Symbicort] 160-4.5 mcg/actuation HFA aerosol inhaler 2 puff inhalation BID Qty: 10.2 5RF (DME) cpap supplies See Rx Instructions .Route .MEDSUPPLY Qty: 1 5RF Rx Instructions: As directed (DME) Aerochamber MV Spacer See Rx Instructions .Route Qty: 1 0RF Rx Instructions: As directed (DME) Bone Growth Stimulator See Rx Instructions .Route .MEDSUPPLY Qty: 1 0RF Rx Instructions: As directed albuterol sulfate 90 mcg/actuation HFA aerosol inhaler 2 puff inhalation Q4H PRN (Reason: shortness of breath or wheezing) Qty: 8.5 2RF cholecalciferol (vitamin D3) [Vitamin D3] 25 mcg (1,000 unit) Capsule 25 mcg PO DAILY levothyroxine 112 mcg tablet 112 mcg PO DAILY Rx Instructions: TAKE ONE TABLET BY MOUTH ONCE DAILY montelukast 10 mg tablet 10 mg PO DAILY Rx Instructions: TAKE ONE TABLET BY MOUTH ONCE DAILY Discharge Orders: Discharge Order (Routine); Ordered 08/24/24 Ordered By: Isaac Ace Discharge Diet: Advance as tolerated Discharge Activity: Limit activity as instructed Patient Instructions: Acute Wound Care (DC), Opioid Safety, Post Anesthesia Care Activity Restrictions/Additional Instructions: Thank you for [facility] for your care! The following is a list of instructions, from your provider, to follow upon your discharge to ensure you have the optimal recovery from your recent injury orsurgery. Follow-up care is a kirby part of your treatment and safety. Be sure to make and go to all appointments, and call your doctor if you are having problems. If you do not already have a follow-up appointment made, call Dr. Ace office in the next 1-3 days to make follow up appointment for 1 weeks at [phone]. It is also a good idea to know your test results and keep a list of the medicines you take. Medications will be prescribed for you at your provider's discretion. These medications are to be used as instructed; if they are taken more often that prescribed they will not be refilled early and in most cases will not be refilled at all. > When a refill is needed,you should contact delia ken 2-3 business days before your prescription runs out. Medications will NOT be refilled by communications equipment operator providers after hours! > Many pain medications contain Tylenol (Acetaminophen). Do not consume more than 4,000 mg of Tylenol per day in total with any combination ofmedications. > Pain medications can cause constipation. Please use an over the counter stool softener as directed, while taking pain medications. Consulty our local pharmacist with questions or recommendations on stool softeners. If constipation persists, contact our office or your primary care provider. > While under our care,you are not to receive pain medications or other controlled substances from any other provider unless our office is notified and approves. Any attempts to do so will result in refusal to prescribe any further pain medications and possible dismissal from our practice. ? Keep dressing on until seen in 1 week we will change dressing in the clinic. ? Showering is permitted, however we ask that you do not take a bath, sit in a whirlpool / Jacuzzi, or go swimming for 1 month. For only the first 2 days after surgery, lt wilt be necessary for you to cover your wound/dressing with plastic and tape to keep it dry. ? Walking is essential for the healing process after surgery. We wo uld like you to slowly advance your walking. This should be done on relatively flat clear ground (inside or out) or can be done on a treadmill. Remember this goal does not have to happen all at once, slowly increase your distance and duration. This can be broken into more more than one walk per day as tolerated. Patients who walk as directed after surgery rarely require Physical Therapy. In the unlikely event this issue arises your provider will direct hospital staff to make the appropriate arrangements. ? No lifting over 5 pounds {a gallon of milk) or bending/twisting until further notice. Each of these activities places an unnecessary amount of stress onto the body and can impede the delicate healing process. > Instead of bending at the waist, keep your back straight and bend at the knees. > Instead of twisting your torso, keep your back straight and turn your entire body with your feet. ? You may sleep in any position which makes you comfortable. Many p atients find comfort sleeping in a reclining chair. It is not abnormal to have difficulty sleeping for the first several weeks following your surgery. We recommend trying Benadry! or Tylenol PM as directed to help with your sleeping difficulties. Both medications are over the counter and available withoutprescription. ? NO SMOKING!!! Smoking dramatically increases the probability of developing postoperative wound infections. ? Common complaints after lumbar and/or thoracic spine surgery include, but are not limited to: numbness and/or tingling in the legs, pain around the incision and surrounding tissues, muscle spasms, or stiffness of the middle to low back. Contact our office if these symptoms persist or if an acute change occurs. ? No driving for the first 3-5days, and not while taking narcotics until seen at your follow-up appointment and cleared. There are no restrictions for riding on short trips, however if you take a longer trip, arrangements should be made to make regular stops to get out of the vehicle and stretch . ? Swelling is an unfortunate event that will take place with any surgery and is the primary source of your postoperative discomfort. While walking and regular approved activities helps control inflammation, there are additional steps you can take to minimizeswelling. > Place ice over the surgical site and surrounding tissue for twenty minutes, followed by applying a low/medium heat (heating pad) for an additional twenty minutes every 1-2 hours as needed for painrelief. > You may use of over the counter anti-inflammatory medications (Ibuprofen, Motrin, Aleve, Advil, etc) as directed on the package label. These types of medicines wm significantly reduce the amount of discomfort you experience after surgery from swelling. It should be noted that if you have and allergy to any of these medications, or a history of ulcers or kidney disease you should consult you primary care provider prior to starting these medications. Discharge Attestations Time Spent in Discharge Care*: less than 30 min Quality Metrics Clinical Quality Measures [ No reported AMI, CVA or VTE this stay] Coding Level of Care Code Acute Code for Chg Fwd Diagnoses Status post lumbar spinal fusion Z98.1
[2024-08-24 07:40] VITALS: BP 104/65; PULSE 80; RESP 18; TEMP 36.8; O2SAT 93
[2024-08-24 08:00] VITALS: PULSE 85; RESP 18; O2SAT 97
[2024-08-24] MEDS: budesonide 0.5 mg/2 mL Neb INHALATION (08:41)
[2024-08-24] MEDS: ipratropium-albuterol 3 mL Neb INHALATION (08:41)
[2024-08-24] MEDS: multivitamin therapeutic Tablet 1 TAB PO (08:54)
[2024-08-24] MEDS: cyanocobalamin 1,000 mcg Tablet 1000 MCG PO (08:54)
[2024-08-24] MEDS: famotidine 20 mg Tablet 40 MG PO (08:54)
[2024-08-24] MEDS: docusate sodium 100 mg Capsule PO (08:54)
[2024-08-24] MEDS: levothyroxine 112 mcg Tablet PO (08:54)
[2024-08-24] MEDS: montelukast sodium 10 mg Tablet PO (08:54)
[2024-08-24] MEDS: cholecalciferol (vitamin D3) 1,000 unit Tablet 1000 UNIT PO (08:54)
[2024-08-24] MEDS: diclofenac 1% Topical Gel 100 gm 1 APPLIC TOPICAL ×2 (08:55→13:05)
--- NOTE | 2024-08-24 10:02 | PC.SOCIAL ---
CM spoke to patient who states they found her a walker at [employer], and she has a friend building a ramp for her at this time. Discusses BSC and informed her that insurance dont cover a BSC.
[2024-08-24 11:40] VITALS: BP 106/70; PULSE 84; RESP 18; TEMP 36.8; O2SAT 92
--- NOTE | 2024-08-24 14:06 | PC.NURSE ---
Discussed discharge with patient along with additional restrictions and activities. Stated when follow up appointments are, new medications and to continue all home medications. Patient verbalized understanding. Patient is waiting for a ride to take her home.
[2024-08-24 16:27] VITALS: BP 106/70; PULSE 84; RESP 18; TEMP 36.8; O2SAT 92
== END 2024-08-24 14:00 | disposition home or self-care (01) | DRG 402 ==
LOC: MEDSURG 19:54
PROVIDERS: Student in an Organized Health Care Education/Training Program; Admitting Provider Orthopaedic Surgery; PCP Family Medicine; Visit Provider Orthopaedic Surgery
PROC: 0SG00AJ Fusion of Lumbar Vertebral Joint with Interbody Fusion Device, Posterior Approach, Anterior Column, Open Approach (ICD-10-PCS; principal; 2024-08-22 13:40)
PROC: 0SG00AJ Fusion of Lumbar Vertebral Joint with Interbody Fusion Device, Posterior Approach, Anterior Column, Open Approach (ICD-10-PCS; CPT 22612; 2024-08-22 13:40)
DX: M43.16 Spondylolisthesis, lumbar region (principal); M48.062 Spinal stenosis, lumbar region with neurogenic claudication; Z79.51 Long term (current) use of inhaled steroids; K21.9 Gastro-esophageal reflux disease without esophagitis; G43.909 Migraine, unspecified, not intractable, without status migrainosus; E78.5 Hyperlipidemia, unspecified; E03.9 Hypothyroidism, unspecified; J45.909 Unspecified asthma, uncomplicated; Z83.3 Family history of diabetes mellitus; Z82.3 Family history of stroke; Z82.49 Family history of ischemic heart disease and other diseases of the circulatory system; Z82.5 Family history of asthma and other chronic lower respiratory diseases; Z82.0 Family history of epilepsy and other diseases of the nervous system
CPT/HCPCS: 36415; 51702; 72100; 76000; 85025; 86850; 86900; 94640; 97116; 97161; C1713; J0131; J0690; J1100; J1200; J1644; J1885; J2250; J2270; J2371; J2405; J2704; J3010; J3370; J3490; J7030; J7120; J7613; J7626

== ENCOUNTER 2024-08-24 17:22 | Observation (INO) | payer MEDICAID, SELFPAY ==
[2024-08-24] VITALS (10 sets, daily range): BP systolic 103–120; BP diastolic 63–83; PULSE 80–87; RESP 16–21; TEMP 36.8; O2SAT 94–98; BMI 44.2
--- NOTE | 2024-08-24 18:26 | ED_ITS ---
HPI - Weakness 2 General: Chief complaint: Weakness Stated complaint: unable to lift either leg after surgery Time Seen by Provider: 08/24/24 18:21 History of Present Illness: Patient presents to the ER with complaints of increased weakness. Patient had L4-5 fusion on Thursday and was discharged today. Patient lives home alone off the grid with no water electricity. Patient went home and found that she is unable to take care of herself and came back to the ER for evaluation and possible rehab placement. Review of Systems 2 General: Reports: 10 or more systems reviewed and unremarkable except in HPI and below PFSH ED 2 PFSH: Medical History BMI 45.0-49.9, adult Acute pain of right knee Tendinopathy of left rotator cuff Tendinopathy of right rotator cuff GERD (gastroesophageal reflux disease) Migraine Hyperlipidemia Hypothyroid Asthma Bursitis and tendinitis of shoulder region Surgical History H/O arthroscopic knee surgery right History of section x2 H/O elbow surgery right Family History Father Diabetes Stroke CAD (coronary artery disease) Asthma Mother Dementia CAD (coronary artery disease) Brother Asthma Autism Social History Smoking and tobacco/nicotine status: never used tobacco/nicotine Alcohol intake: former Year of sobriety/quit date alcohol: 1998 Substance/Drug Use: never Lives independently: Yes Household members: children Marital status: Current occupational status: employed Pets and animals: Yes Do you think of yourself as: Straight/Heterosexual Current gender identity: Female Physical Exam 2 Const: COMMON NORMALS: no acute distress, average body habitus, patient oriented x3, no limitations, healthy appearing, alert and well nourished HENMT: COMMON NORMALS: normocephalic, atraumatic, hearing grossly normal bilaterally, external ears normal, Normal external nose present and moist oral mucous membranes HEAD & SCALP: normocephalic and atraumatic NOSE: Normal external nose present EXTERNAL EAR: Yes external ears normal Neck/C-Spine: COMMON NORMALS: no JVD Chest: COMMONS NORMALS: normal inspection of the chest and normal palpation of entire chest wall Resp: COMMON NORMALS: normal respiratory effort, No retractions, No use of accessory muscles and clear to auscultation bilaterally AUSCULTATION: clear to auscultation bilaterally Cardio: COMMON NORMALS: no JVD, regular rate, regular rhythm, S1 normal heart sound present, S2 normal heart sound present, No gallops present (Cardio), No clicks present (Cardio), No murmurs present (Cardio) and No rub (Cardio) R ATE: regular rate RHYTHM: regular rhythm HEART SOUNDS: S1 normal heart sound present and S2 normal heart sound present GI: COMMON NORMALS: Normal to inspection, nondistended, normoactive bowel sounds present, Soft to palpation, non-tender, No hepatosplenomegaly present and no masses PALPATION: Yes Soft to palpation and Yes No hepatosplenomegaly present Neuro: COMMON NORMALS: patient oriented x3 SENSORIUM/ORIENTATION: Yes alert Course 2 Vital Signs: Vital signs: Vital Signs Temperature 98.2 F 08/24/24 17:31 Pulse Rate 85 08/24/24 18:24 Respiratory Rate 16 08/24/24 17:31 Blood Pressure 120/74 08/24/24 18:24 Pulse Oximetry 95 08/24/24 18:24 Oxygen Delivery Me thod Room Air 08/24/24 17:31 MDM - Weakness Medical Decision Making Reviewed the case with Dr. Ace he said he is okay with us sending her to rehab facility. Reviewed case with Dr. Kerns who is agreed to place her in observation and have social work try to get her into rehab. Medical Records I reviewed the patient's medical records. Lab Data I reviewed the patient's lab results. 08/24/24 18:36 08/24/24 18:36 Laboratory Results WBC 10.20 10^3/uL (3.29-11.43) 08/24/24 18:36 RBC 3.44 10^6/uL (3.85-5.65) L 08/24/24 18:36 Hgb 11.10 g/dL (11.27-16.99) L 08/24/24 18:36 Hct 35.8 % (36-47) L 08/24/24 18:36 MCV 104.1 fl (85-98) H 08/24/24 18:36 MCH 32.3 pg (27-33) 08/24/24 18:36 MCHC 31.0 g/dL (30-55) 08/24/24 18:36 RDW 13.9 % (12.1-15.1) 08/24/24 18:36 Plt Count 263 10^3/cmm (157-399) 08/24/24 18:36 MPV 9.9 fL (7.4-10.4) 08/24/24 18:36 Neut % (Auto) 73.1 % 08/24/24 18:36 Lymph % (Auto) 17.5 % 08/24/24 18:36 [place] % (Auto) 8.3 % 08/24/24 18:36 Eos % (Auto) 0.4 % 08/24/24 18:36 Baso % (Auto) 0.2 % 08/24/24 18:36 Neut # (Auto) 7.45 10^3/uL (1.8-7.7) 08/24/24 18:36 Lymph # (Auto) 1.8 10^3/uL (0.8-4.8) 08/24/24 18:36 [place] # (Auto) 0.9 10^3/uL (0.2-0.9) 08/24/24 18:36 Eos # (Auto) 0.0 10^3/uL (0.0-0.8) 08/24/24 18:36 Baso # (Auto) 0.0 10^3/uL (0.0-0.1) 08/24/24 18:36 Nucleated RBC % (auto) 0 % 08/24/24 18:36 Nucleated RBCs # 0.0 /100WBC 08/24/24 18:36 Sodium 135 mmol/L (136-145) L 08/24/24 18:36 Potassium 4.3 mmol/L (3.5-5.1) 08/24/24 18:36 Chloride 102 mmol/L (98-107) 08/24/24 18:36 Carbon Dioxide 23 mmol/L (22-29) 08/24/24 18:36 Anion Gap 14.3 (5-19) 08/24/24 18:36 BUN 27 mg/dL (8-23) H 08/24/24 18:36 Creatinine 0.6 mg/dL (0.5-0.9) 08/24/24 18:36 GFR Calculation 101.6 mL/min (90-130) 08/24/24 18:36 Glucose 112 mg/dL (65-115) 08/24/24 18:36 Calculated Osmolality 286 mOsm/kg (285-295) 08/24/24 18:36 Calcium 8.7 mg/dL (8.5-10.5) 08/24/24 18:36 Total Bilirubin 0.4 mg/dL (0.15-1.2) 08/24/24 18:36 AST 26 U/L (0-32) 08/24/24 18:36 ALT 16 U/L (0-33) 08/24/24 18:36 Alkaline Phosphatase 76 U/L (35-105) 08/24/24 18:36 Total Protein 6.2 g/dL (6.6-8.7) L 08/24/24 18:36 Albumin 3.7 g/dL (3.5-5.2) 08/24/24 18:36 Globulin 2.5 g/dL (1.3-4.6) 08/24/24 18:36 Urine Color Yellow (Yellow) 08/24/24 19:42 Urine Appearance Cloudy (CLEAR) A 08/24/24 19:42 Urine pH 5.5 (5-7) 08/24/24 19:42 Ur Specific [place] 1.037 (1.005-1.030) H 08/24/24 19:42 Urine Protein Trace (Negative) A 08/24/24 19:42 Urine Glucose (UA) Negative (Normal) 08/24/24 19:42 Urine Ketones Negative (Negative) 08/24/24 19:42 Urine Blood 1+ (Negative) A 08/24/24 19:42 Urine Nitrate Negative (Negative) 08/24/24 19:42 Urine Bilirubin Negative (Negative) 08/24/24 19:42 Urine Urobilinogen 1.0 mg/dL (Negative) 08/24/24 19:42 Ur Leukocyte Esterase 1+ (Negative) A 08/24/24 19:42 Urine RBC 21-50 /hpf (0-2) H 08/24/24 19:42 Urine WBC 11-20 /hpf (0-5) H 08/24/24 19:42 Ur Squamous Epith Cells 11-20 /hpf (0-5) 08/24/24 19:42 Amorphous Sediment Not Reportable 08/24/24 19:42 Urine Bacteria 4+ /hpf (NONE) H 08/24/24 19:42 Hyaline Casts 6.20 /lpf 08/24/24 19:42 No radiology studies performed this visit Discharge Plan Discharge Patient Disposition: Placed in Observation Clinical Impression: Bilateral leg weakness, S/P lumbar fusion Coding Level of Care Code ED Publisher Assistant for Chg Fwd Related Data Home Medications Medication Instructions Recorded Confirmed mecobalamin (vitamin B12) 1,000 1,000 mcg PO DAILY 03/04/23 08/18/24 mcg chewable tablet multivitamin (Daily Multi-Vitamin 1 tab PO DAILY 03/04/23 08/18/24 tablet) cholecalciferol (vitamin D3) 25 25 mcg PO DAILY 06/11/23 08/18/24 mcg (1,000 unit) capsule (Vitamin D3) famotidine 20 mg tablet (Pepcid) 40 mg PO BID 08/03/24 08/18/24 levothyroxine 112 mcg tablet 112 mcg PO DAILY 08/18/24 08/18/24 montelukast 10 mg tablet 10 mg PO DAILY 08/22/24 08/22/24 Previous Rx's Medication Instructions Recorded miscellaneous medical supply 1 ea miscellaneous DIRECTED #1 01/05/23 ea cpap supplies #1 ea 08/05/23 Hinged Knee Brace #1 ea 09/30/23 inhalational spacing device #1 ea 01/04/24 (Aerochamber MV spacer) ipratropium 0.5 mg-albuterol 3 mg See Rx Instructions .Route 01/05/24 (2.5 mg base)/3 mL nebulization .COMPLEX #180 mL soln budesonide-formoterol HFA 160 2 puff inhalation BID #10.2 grams 03/16/24 mcg-4.5 mcg/actuation aerosol inhaler (Symbicort) tiotropium bromide 1.25 2 puff inhalation DAILY #4 grams 03/16/24 mcg/actuation mist for inhalation (Spiriva Respimat) diclofenac sodium 1 % topical gel 2 g topical QID #100 grams 04/13/24 Bone Growth Stimulator #1 ea 05/18/24 albuterol sulfate 90 mcg/actuation 2 puff inhalation Q4H PRN 06/23/24 aerosol inhaler shortness of breath or wheezing #8.5 grams hydrocodone 5 mg-acetaminophen 325 1 - 2 tab PO .Q4-6H #40 tabs 08/24/24 mg tablet Allergies Allergy/AdvReac Type Severity Reaction Status Date / Time zolmitriptan [From Zomig] Allergy Severe brain Verified 08/24/24 17:35 swelling
[2024-08-24 19:03] LABS: Basophils % 0.2 %; Eosinophils % 0.4 %; Hematocrit 35.8 % (36-47); Lymphocytes # 1.8 10^3/uL (0.8-4.8); Lymphocytes % 17.5 %; Mean Corpuscular Hemoglobin 32.3 pg (27-33); Mean Corpuscular Volume 104.1 fl (85-98); Mean Platelet Volume 9.9 fL (7.4-10.4); Monocytes # 0.9 10^3/uL (0.2-0.9); Monocytes % 8.3 %; Neutrophils # 7.45 10^3/uL (1.8-7.7); Neutrophils % 73.1 %; Nucleated Red Blood Cells % 0 %; Platelet Count 263 10^3/cmm (157-399); Red Blood Count 3.44 10^6/uL (3.85-5.65); Red Cell Distribution Width 13.9 % (12.1-15.1)
[2024-08-24 19:19] LABS: Alanine Aminotransferase 16 U/L (0-33); Albumin Level 3.7 g/dL (3.5-5.2); Alkaline Phosphatase 76 U/L (35-105); Blood Urea Nitrogen 27 mg/dL (8-23); Calcium 8.7 mg/dL (8.5-10.5); Carbon Dioxide 23 mmol/L (22-29); Chloride 102 mmol/L (98-107); Creatinine Clr Calc Pharmacy 154.4092; Globulin 2.5 g/dL (1.3-4.6); Glomerular Filtration Rate 101.6 mL/min (90-130); Glucose 112 mg/dL (65-115); Osmolality Calculated 286 mOsm/kg (285-295); Sodium 135 mmol/L (136-145); Total Bilirubin 0.4 mg/dL (0.15-1.2); Total Protein 6.2 g/dL (6.6-8.7)
[2024-08-24 19:30] LABS: Anion Gap 14.3 (5-19); Aspartate Amino Transferase 26 U/L (0-32); Potassium 4.3 mmol/L (3.5-5.1)
[2024-08-24 19:54] LABS: Bilirubin Urine Negative (Negative); Blood Urine 1+ (Negative); Glucose Urine UA Negative (Normal); Ketones Urine Negative (Negative); Leukocyte Esterase Urine 1+ (Negative); Nitrate Urine Negative (Negative); Protein Urine Trace (Negative); Urine Appearance Cloudy (CLEAR); Urine Color Yellow (Yellow); pH Urine 5.5 (5-7)
[2024-08-24 20:00] LABS: Add Urine Microscopic? YES; Bacteria Urine 4+ /hpf; RBC Urine 21-50 /hpf (0-2)
--- NOTE | 2024-08-24 20:09 | P.HP_ITS ---
Providers/Chief Complaint 2 Primary Care Provider: Fernando Burns DO Chief Complaint: unable to lift either leg after surgery History of Present Illness Trudi Briones is a 63 year old female was discharged today after laminectomy, L4-5 fusion cage insertion L4-5 presented back to the ER stating that she is afraid that she will fall because she is feeling weaker and she lives off the grid. CBC BMP unremarkable. She is hemodynamically stable. Afebrile. H&H no significant changes. Patient is stating that the reason she went for the surgery was inability to walk, she has chronic incontinence, she was getting left-sided numbness and weakness. Since her surgery patient is stating that her symptoms have not changed significantly but she could not lift her leg to get in and out of car, she is able to move her extremities with pain, she does have intact sensations medial thigh area, Review of Systems 2 Eyes: Denies: change in vision ENMT: Denies: throat pain Card: Denies: chest pain Resp: Denies: dyspnea GI: Denies: abdominal pain : Denies: flank pain Musc: Reports: back pain and extremity pain Medications/Allergies Home Medications Medication Instructions Recorded Confirmed Last Taken Type miscellaneous medical supply 1 ea miscellaneous DIRECTED #1 01/05/23 08/18/24 08/18/24 Rx ea mecobalamin (vitamin B12) 1,000 1,000 mcg PO DAILY 03/04/23 08/18/24 08/21/24 History mcg chewable tablet multivitamin (Daily Multi-Vitamin 1 tab PO DAILY 03/04/23 08/18/24 08/21/24 History tablet) cholecalciferol (vitamin D3) 25 25 mcg PO DAILY 06/11/23 08/18/24 08/18/24 History mcg (1,000 unit) capsule (Vitamin D3) cpap supplies #1 ea 08/05/23 08/23/24 Unknown Rx Hinged Knee Brace #1 ea 09/30/23 08/23/24 Unknown Rx inhalational spacing device #1 ea 01/04/24 08/23/24 Unknown Rx (Aerochamber MV spacer) ipratropium 0.5 mg-albuterol 3 mg See Rx Instructions .Route 01/05/24 08/18/24 08/22/24 Rx (2.5 mg base)/3 mL nebulization .COMPLEX #180 mL soln budesonide-formoterol HFA 160 2 puff inhalation BID #10.2 grams 03/16/24 08/18/24 08/22/24 Rx mcg-4.5 mcg/actuation aerosol inhaler (Symbicort) tiotropium bromide 1.25 2 puff inhalation DAILY #4 grams 03/16/24 08/18/24 08/22/24 Rx mcg/actuation mist for inhalation (Spiriva Respimat) diclofenac sodium 1 % topical gel 2 g topical QID #100 grams 04/13/24 08/18/24 08/18/24 Rx Bone Growth Stimulator #1 ea 05/18/24 08/23/24 Unknown Rx albuterol sulfate 90 mcg/actuation 2 puff inhalation Q4H PRN 06/23/24 08/18/24 08/22/24 Rx aerosol inhaler shortness of breath or wheezing #8.5 grams famotidine 20 mg tablet (Pepcid) 40 mg PO BID 08/03/24 08/18/24 08/22/24 History levothyroxine 112 mcg tablet 112 mcg PO DAILY 08/18/24 08/18/24 08/21/24 History montelukast 10 mg tablet 10 mg PO DAILY 08/22/24 08/22/24 08/21/24 History hydrocodone 5 mg-acetaminophen 325 1 - 2 tab PO .Q4-6H #40 tabs 08/24/24 Unknown Rx mg tablet Allergies Allergy/AdvReac Type Severity Reaction Status Date / Time zolmitriptan [From Zomig] Allergy Severe brain Verified 08/24/24 17:35 swelling PFSH Acute 2 PFSH: Medical History BMI 45.0-49.9, adult Acute pain of right knee Tendinopathy of left rotator cuff Tendinopathy of right rotator cuff GERD (gastroesophageal reflux disease) Migraine Hyperlipidemia Hypothyroid Asthma Bursitis and tendinitis of shoulder region Surgical History H/O arthroscopic knee surgery right History of section x2 H/O elbow surgery right Family History Father Diabetes Stroke CAD (coronary artery disease) Asthma Mother Dementia CAD (coronary artery disease) Brother Asthma Autism Social History Smoking and tobacco/nicotine status: never used tobacco/nicotine Alcohol intake: former Year of sobriety/quit date alcohol: 1998 Substance/Drug Use: never Lives independently: Yes Household members: children Marital status: Current occupational status: employed Pets and animals: Yes Do you think of yourself as: Straight/Heterosexual Current gender identity: Female Vitals/I&O/Wt Last Vital Signs Temp 98.2 F 08/24/24 17:31 Pulse 85 08/24/24 18:24 Resp 16 08/24/24 17:31 BP 120/74 08/24/24 18:24 Pulse Ox 95 08/24/24 18:24 O2 Del Method Room Air 08/24/24 17:31 Weight last 48 hrs Weight 99.337 kg Physical Exam 2 Narrative: Morbidly obese female Do not appreciate typical cauda equina signs , S2 Awake and Alert Lower Extremity Edema S1, S2 Currently on Room Air Hemodynamically Stable Patient in Distress Because of Back Pain No Signs of Focal Deficit Sensations Intact Medial Thigh Area Data 08/24/24 18:36 08/24/24 18:36 A&P Assessment and plan (1) Hypothyroid: Qualifiers: Hypothyroidism type: acquired Qualified Code(s): E03.9 - Hypothyroidism, unspecified (2) BMI 40.0-44.9, adult: (3) Frequency of micturition: (4) Lower extremity pain, bilateral: (5) Spondylolisthesis at L4-L5 level: (6) Lumbar back pain: (7) Primary osteoarthritis of left knee: (8) Lumbar radiculopathy: (9) Obstructive sleep apnea: Plan L4-L5 interbody fusion, insertion of cage No active sign of cauda equina Surgery was done on 08/22 Afebrile, H&H stable Patient is fit that she will not be able to do well at home because she lives off the grid requesting rehab/SNF placement Will keep her on cardiac diet Opioids along bowel regimen Will request PT eval in the morning Social service consult Full code DVT prophylaxis Lovenox Attestations 2 Medical Necessity Statement*: Anticipating discharge within 48 hours Diagnoses Acquired hypothyroidism E03.9 Hypothyroidism type: acquired BMI 40.0-44.9, adult Z68.41 Frequency of micturition R35.0 Lower extremity pain, bilateral M79.604; M79.605 Spondylolisthesis at L4-L5 level M43.16 Lumbar back pain M54.50 Primary osteoarthritis of left knee M17.12 Lumbar radiculopathy M54.16 Obstructive sleep apnea G47.33
[2024-08-24 20:21] LABS: Specific Gravity, Urine 1.037 (1.005-1.030); UA Slide Review UA Slide Review Perf
[2024-08-24 20:22] LABS: Add Urine Culture? No
[2024-08-24] MEDS: HYDROcodone-acetaminophen 5-325 mg Tablet 1 TAB PO (21:02)
[2024-08-24] MEDS: enoxaparin 40 mg/0.4 mL Syringe SUBCUT (21:11)
[2024-08-24] MEDS: morphine IR 15 mg Tablet PO (22:38)
[2024-08-25] VITALS (18 sets, daily range): BP systolic 101–182; BP diastolic 58–108; PULSE 75–92; RESP 16–21; TEMP 36.7–37.3; O2SAT 91–98; BMI 45.6
[2024-08-25] MEDS: HYDROcodone-acetaminophen 5-325 mg Tablet 1 TAB PO ×2 (01:24→18:45)
[2024-08-25 03:45] LABS: Basophils % 0.4 %; Eosinophils # 0.1 10^3/uL (0.0-0.8); Eosinophils % 1.1 %; Hematocrit 31.7 % (36-47); Lymphocytes % 24.2 %; Mean Corpuscular HGB Conc 31.9 g/dL (30-55); Mean Corpuscular Hemoglobin 31.8 pg (27-33); Mean Corpuscular Volume 99.7 fl (85-98); Mean Platelet Volume 9.7 fL (7.4-10.4); Monocytes # 1.1 10^3/uL (0.2-0.9); Monocytes % 13.2 %; Neutrophils % 60.5 %; Nucleated Red Blood Cells % 0 %; Platelet Count 225 10^3/cmm (157-399); Red Blood Count 3.18 10^6/uL (3.85-5.65); Red Cell Distribution Width 13.6 % (12.1-15.1); White Blood Count 8.26 10^3/uL (3.29-11.43)
[2024-08-25 04:18] LABS: Magnesium 1.9 mg/dL (1.7-2.3)
[2024-08-25] MEDS: sennosides-docusate Tablet 1 TAB PO (09:17)
[2024-08-25] MEDS: levothyroxine 112 mcg Tablet PO (09:17)
[2024-08-25] MEDS: morphine IR 15 mg Tablet PO ×3 (09:17→21:43)
--- NOTE | 2024-08-25 16:35 | P.PN_ITS ---
Subjective 2 Subjective: Overnight labs H&P and spinal surgery recommendations reviewed. Patient returned to the emergency room due to lower extremity weakness and pain. States she feels unsafe to go home. Medications: Reviewed: Yes Vitals/I&O/Wt Last Vital Signs Temp 97.8 F 08/26/24 12:00 Pulse 90 08/26/24 12:54 Resp 17 08/26/24 15:34 BP 100/55 08/26/24 12:00 Pulse Ox 97 08/26/24 12:54 O2 Del Method Room Air 08/26/24 12:54 FiO2 24 08/25/24 04:15 08/26/24 08/26/24 08/26/24 06:59 14:59 22:59 Intake Total 240 / 1080 840 / 840 Output Total 200 / 200 200 / 400 Balance 240 / 1080 640 / 640 -200 / 440 Weight last 48 hrs Weight 104.598 kg Weight 104.644 kg Weight 99.337 kg Physical Exam 2 Narrative: General: No acute distress, AO x3 HEENT: PERRLA, pupils bilaterally equal and reactive, pallors not present Chest: Normal vesicular breath sounds, no added sounds, equal good air entry bilaterally CVS: S1-S2 regular, no murmurs, no tachycardia, no gallops, no rubs Abdomen: Soft, nontender, no organomegaly, bowel sounds present Neuro: No focal deficits, no facial deformity, AO x3, power 5/5 in all limbs Data 08/25/24 03:29 08/24/24 18:36 A&P Assessment and plan (1) Hypothyroid: Qualifiers: Hypothyroidism type: acquired Qualified Code(s): E03.9 - Hypothyroidism, unspecified (2) BMI 40.0-44.9, adult: (3) Frequency of micturition: (4) Lower extremity pain, bilateral: (5) Spondylolisthesis at L4-L5 level: (6) Lumbar back pain: (7) Primary osteoarthritis of left knee: (8) Lumbar radiculopathy: (9) Obstructive sleep apnea: Plan L4-L5 interbody fusion, insertion of cage No active sign of cauda equina Surgery was done on 08/22 Afebrile, H&H stable Patient is fit that she will not be able to do well at home because she lives off the grid requesting rehab/SNF placement Will keep her on cardiac diet Opioids along bowel regimen Will request PT eval in the morning Social service consult Full code DVT prophylaxis Lovenox 08/25/2024 H&H stable. Patient reports generalized weakness, lower extremity pain and back pain. Afraid to go home. Appropriate disposition planning is ongoing. [place], does not have services at home. States that previously her friend was going to be taking care of her therefore she had planned to be discharged home, however her friend is no longer available to assist in her care. If she goes home she will be a high fall risk, risk of bodily injury. We are therefore starting appropriate disposition planning for this patient. Attestations 2 Medical Necessity Statement*: Appropriate ongoing disposition planning. Observation Coding Level of Care Code Acute Code for Chg Fwd Diagnoses Acquired hypothyroidism E03.9 Hypothyroidism type: acquired BMI 40.0-44.9, adult Z68.41 Frequency of micturition R35.0 Lower extremity pain, bilateral M79.604; M79.605 Spondylolisthesis at L4-L5 level M43.16 Lumbar back pain M54.50 Primary osteoarthritis of left knee M17.12 Lumbar radiculopathy M54.16 Obstructive sleep apnea G47.33
--- NOTE | 2024-08-25 17:12 | P.PN_ITS ---
Subjective 2 Subjective: Patient was readmitted patient stated she can lift her legs get out of the car. Came to the ER last night and was admitted to be admitted to a retirement. Vitals/I&O/Wt Last Vital Signs Temp 98.3 F 08/25/24 15:59 Pulse 86 08/25/24 15:59 Resp 16 08/25/24 15:59 BP 103/68 08/25/24 15:59 Pulse Ox 98 08/25/24 15:59 O2 Del Method Room Air 08/25/24 15:59 FiO2 24 08/25/24 04:15 08/25/24 08/25/24 08/25/24 06:59 14:59 22:59 Intake Total 480 / 480 240 / 240 Balance 480 / 480 240 / 240 Weight last 48 hrs Weight 230 lb 11.2 oz Weight 219 lb Physical Exam 2 Narrative: Pain control eating dinner in bed. Data 08/25/24 03:29 08/24/24 18:36 A&P Assessment and plan (1) Status post lumbar spinal fusion: Patient postop day #3 spinal fusion. At this point she is here now to get placement to a retirement. Will see her next week in clinic for her follow-up appointment. Attestations 2 Medical Necessity Statement*: Per primary service Coding Level of Care Code Acute Code for Chg Fwd Diagnoses Status post lumbar spinal fusion Z98.1
[2024-08-25] MEDS: enoxaparin 40 mg/0.4 mL Syringe SUBCUT (21:43)
[2024-08-26] VITALS (9 sets, daily range): BP systolic 97–110; BP diastolic 55–73; PULSE 70–90; RESP 14–18; TEMP 36.6–36.9; O2SAT 94–97
[2024-08-26] MEDS: HYDROcodone-acetaminophen 5-325 mg Tablet 1 TAB PO ×3 (08:20→20:40)
[2024-08-26] MEDS: sennosides-docusate Tablet 1 TAB PO (08:20)
[2024-08-26] MEDS: levothyroxine 112 mcg Tablet PO (08:20)
[2024-08-26] MEDS: cefTRIAXone 1,000 mg SDV 1000 MG IVP (15:33)
[2024-08-26] MEDS: morphine IR 15 mg Tablet PO (15:34)
--- NOTE | 2024-08-26 16:37 | P.PN_ITS ---
Subjective 2 Subjective: No acute interim events. Tmax noted to be 99.2. UA positive most recently. Pending urine culture. Medications: Reviewed: Yes Vitals/I&O/Wt Last Vital Signs Temp 97.8 F 08/26/24 12:00 Pulse 90 08/26/24 12:54 Resp 17 08/26/24 15:34 BP 100/55 08/26/24 12:00 Pulse Ox 97 08/26/24 12:54 O2 Del Method Room Air 08/26/24 12:54 FiO2 24 08/25/24 04:15 08/26/24 08/26/24 08/26/24 06:59 14:59 22:59 Intake Total 240 / 1080 840 / 840 Output Total 200 / 200 200 / 400 Balance 240 / 1080 640 / 640 -200 / 440 Weight last 48 hrs Weight 104.598 kg Weight 104.644 kg Weight 99.337 kg Physical Exam 2 Narrative: General: No acute distress, AO x3 HEENT: PERRLA, pupils bilaterally equal and reactive, pallors not present Chest: Normal vesicular breath sounds, no added sounds, equal good air entry bilaterally CVS: S1-S2 regular, no murmurs, no tachycardia, no gallops, no rubs Abdomen: Soft, nontender, no organomegaly, bowel sounds present Neuro: No focal deficits, no facial deformity, AO x3, power 5/5 in all limbs Data 08/25/24 03:29 08/24/24 18:36 A&P Assessment and plan (1) Hypothyroid: Qualifiers: Hypothyroidism type: acquired Qualified Code(s): E03.9 - Hypothyroidism, unspecified (2) BMI 40.0-44.9, adult: (3) Frequency of micturition: (4) Lower extremity pain, bilateral: (5) Spondylolisthesis at L4-L5 level: (6) Lumbar back pain: (7) Primary osteoarthritis of left knee: (8) Lumbar radiculopathy: (9) Obstructive sleep apnea: Plan L4-L5 interbody fusion, insertion of cage No active sign of cauda equina Surgery was done on 08/22 Afebrile, H&H stable Patient is fit that she will not be able to do well at home because she lives off the grid requesting rehab/SNF placement Will keep her on cardiac diet Opioids along bowel regimen Will request PT eval in the morning Social service consult Full code DVT prophylaxis Lovenox 08/25/2024 H&H stable. Patient reports generalized weakness, lower extremity pain and back pain. Afraid to go home. Appropriate disposition planning is ongoing. [place], does not have services at home. States that previously her friend was going to be taking care of her therefore she had planned to be discharged home, however her friend is no longer available to assist in her care. If she goes home she will be a high fall risk, risk of bodily injury. We are therefore starting appropriate disposition planning for this patient. 08/26/2024 UA positive. Tmax 99.2 Fahrenheit. Mild dysuria. Awaiting urine culture. Start ceftriaxone 1 g IV 24 hours empirically for UTI. Continue pain management and appropriate disposition planning. Attestations 2 Medical Necessity Statement*: Appropriate disposition planning Coding Level of Care Code Acute Code for Chg Fwd Diagnoses Acquired hypothyroidism E03.9 Hypothyroidism type: acquired BMI 40.0-44.9, adult Z68.41 Frequency of micturition R35.0 Lower extremity pain, bilateral M79.604; M79.605 Spondylolisthesis at L4-L5 level M43.16 Lumbar back pain M54.50 Primary osteoarthritis of left knee M17.12 Lumbar radiculopathy M54.16 Obstructive sleep apnea G47.33
[2024-08-26] MEDS: enoxaparin 40 mg/0.4 mL Syringe SUBCUT (20:15)
[2024-08-26] MEDS: polyethylene glycol 3350 Pkt 17 gm PO (20:15)
[2024-08-27] VITALS (10 sets, daily range): BP systolic 93–121; BP diastolic 59–78; PULSE 70–85; RESP 15–18; TEMP 36.4–37; O2SAT 5–98
[2024-08-27] MEDS: HYDROcodone-acetaminophen 5-325 mg Tablet 1 TAB PO ×3 (03:47→20:25)
[2024-08-27] MEDS: sennosides-docusate Tablet 1 TAB PO (09:18)
[2024-08-27] MEDS: morphine IR 15 mg Tablet PO (09:18)
[2024-08-27] MEDS: levothyroxine 112 mcg Tablet PO (09:18)
[2024-08-27] MEDS: polyethylene glycol 3350 Pkt 17 gm PO (09:19)
--- NOTE | 2024-08-27 16:00 | P.PN_ITS ---
Subjective 2 Subjective: No acute interim events. Worked with physical therapy today. Pain is controlled. Medications: Reviewed: Yes Vitals/I&O/Wt Last Vital Signs Temp 97.6 F 08/27/24 12:04 Pulse 78 08/27/24 12:04 Resp 17 08/27/24 12:04 BP 121/78 08/27/24 12:04 Pulse Ox 98 08/27/24 12:04 O2 Del Method Room Air 08/27/24 12:04 FiO2 21 08/26/24 22:05 08/27/24 08/27/24 08/27/24 06:59 14:59 22:59 Intake Total 450 / 1530 720 / 720 Output Total 475 / 875 Balance -25 / 655 720 / 720 Weight last 48 hrs Weight 104.871 kg Weight 104.598 kg Physical Exam 2 Narrative: General: No acute distress, AO x3 HEENT: PERRLA, pupils bilaterally equal and reactive, pallors not present Chest: Normal vesicular breath sounds, no added sounds, equal good air entry bilaterally CVS: S1-S2 regular, no murmurs, no tachycardia, no gallops, no rubs Abdomen: Soft, nontender, no organomegaly, bowel sounds present Neuro: No focal deficits, no facial deformity, AO x3, power 5/5 in all limbs Data 08/25/24 03:29 08/24/24 18:36 A&P Assessment and plan (1) Hypothyroid: Qualifiers: Hypothyroidism type: acquired Qualified Code(s): E03.9 - Hypothyroidism, unspecified (2) BMI 40.0-44.9, adult: (3) Frequency of micturition: (4) Lower extremity pain, bilateral: (5) Spondylolisthesis at L4-L5 level: (6) Lumbar back pain: (7) Primary osteoarthritis of left knee: (8) Lumbar radiculopathy: (9) Obstructive sleep apnea: Plan L4-L5 interbody fusion, insertion of cage No active sign of cauda equina Surgery was done on 08/22 Afebrile, H&H stable Patient is fit that she will not be able to do well at home because she lives off the grid requesting rehab/SNF placement Will keep her on cardiac diet Opioids along bowel regimen Will request PT eval in the morning Social service consult Full code DVT prophylaxis Lovenox 08/25/2024 H&H stable. Patient reports generalized weakness, lower extremity pain and back pain. Afraid to go home. Appropriate disposition planning is ongoing. [place], does not have services at home. States that previously her friend was going to be taking care of her therefore she had planned to be discharged home, however her friend is no longer available to assist in her care. If she goes home she will be a high fall risk, risk of bodily injury. We are therefore starting appropriate disposition planning for this patient. 08/26/2024 UA positive. Tmax 99.2 Fahrenheit. Mild dysuria. Awaiting urine culture. Start ceftriaxone 1 g IV 24 hours empirically for UTI. Continue pain management and appropriate disposition planning. August 27, 2024. Afebrile. Hemodynamically stable. Urine culture pending. Continue ceftriaxone 1 g IV every 24 hours empirically. Continue to work with PT OT. Ongoing appropriate disposition planning as patient is unsafe to be discharged home alone given her instability and decreased endurance. Extremity edema, patient states this is chronic for her. No known history of heart failure. Does not take any diuretics at home. Attestations 2 Medical Necessity Statement*: Appropriate disposition planning ongoing Coding Level of Care Code Acute Code for Chg Fwd Diagnoses Acquired hypothyroidism E03.9 Hypothyroidism type: acquired BMI 40.0-44.9, adult Z68.41 Frequency of micturition R35.0 Lower extremity pain, bilateral M79.604; M79.605 Spondylolisthesis at L4-L5 level M43.16 Lumbar back pain M54.50 Primary osteoarthritis of left knee M17.12 Lumbar radiculopathy M54.16 Obstructive sleep apnea G47.33
[2024-08-27] MEDS: cefTRIAXone 1,000 mg SDV 1000 MG IVP (16:12)
[2024-08-27] MEDS: ipratropium-albuterol 3 mL Neb INHALATION (19:56)
[2024-08-27] MEDS: enoxaparin 40 mg/0.4 mL Syringe SUBCUT (20:25)
[2024-08-28] VITALS (10 sets, daily range): BP systolic 100–122; BP diastolic 64–76; PULSE 75–87; RESP 8–19; TEMP 36.6–37; O2SAT 93–98
[2024-08-28] MEDS: ipratropium-albuterol 3 mL Neb INHALATION ×2 (02:33→07:58)
[2024-08-28 03:33] LABS: Basophils % 0.3 %; Eosinophils # 0.3 10^3/uL (0.0-0.8); Eosinophils % 4.1 %; Hematocrit 30.5 % (36-47); Lymphocytes # 2.7 10^3/uL (0.8-4.8); Lymphocytes % 37.4 %; Mean Corpuscular HGB Conc 31.5 g/dL (30-55); Mean Corpuscular Hemoglobin 31.2 pg (27-33); Mean Platelet Volume 9.2 fL (7.4-10.4); Monocytes # 0.7 10^3/uL (0.2-0.9); Monocytes % 10.2 %; Neutrophils # 3.44 10^3/uL (1.8-7.7); Neutrophils % 47.6 %; Nucleated Red Blood Cells % 0 %; Platelet Count 243 10^3/cmm (157-399); Red Blood Count 3.08 10^6/uL (3.85-5.65); White Blood Count 7.24 10^3/uL (3.29-11.43)
[2024-08-28 04:07] LABS: Alanine Aminotransferase 23 U/L (0-33); Albumin Level 2.9 g/dL (3.5-5.2); Alkaline Phosphatase 118 U/L (35-105); Anion Gap 13.2 (5-19); Aspartate Amino Transferase 26 U/L (0-32); Blood Urea Nitrogen 13 mg/dL (8-23); Calcium 8.5 mg/dL (8.5-10.5); Carbon Dioxide 26 mmol/L (22-29); Chloride 106 mmol/L (98-107); Creatinine Clr Calc Pharmacy 195.6135; Globulin 2.5 g/dL (1.3-4.6); Glomerular Filtration Rate 125.4 mL/min (90-130); Glucose 107 mg/dL (65-115); NT Pro B Type Natriuretic Pept 46 pg/mL (0-125); Osmolality Calculated 293 mOsm/kg (285-295); Potassium 4.2 mmol/L (3.5-5.1); Sodium 141 mmol/L (136-145); Total Bilirubin 0.3 mg/dL (0.15-1.2); Total Protein 5.4 g/dL (6.6-8.7)
[2024-08-28] MEDS: HYDROcodone-acetaminophen 5-325 mg Tablet 1 TAB PO ×2 (07:57→20:19)
[2024-08-28] MEDS: levothyroxine 112 mcg Tablet PO (07:57)
[2024-08-28] MEDS: polyethylene glycol 3350 Pkt 17 gm PO (07:57)
[2024-08-28] MEDS: sennosides-docusate Tablet 1 TAB PO (07:57)
[2024-08-28] MEDS: cefTRIAXone 1,000 mg SDV 1000 MG IVP (16:05)
--- NOTE | 2024-08-28 16:51 | P.PN_ITS ---
Subjective 2 Subjective: No acute interim events. Awaiting appropriate disposition planning. Urine culture with no growth. Discontinue IV antibiotics. Medications: Reviewed: Yes Vitals/I&O/Wt Last Vital Signs Temp 98.1 F 08/28/24 16:00 Pulse 75 08/28/24 16:00 Resp 16 08/28/24 16:00 BP 105/65 08/28/24 16:00 Pulse Ox 96 08/28/24 16:00 O2 Del Method Room Air 08/28/24 16:00 FiO2 21 08/26/24 22:05 08/28/24 08/28/24 08/28/24 06:59 14:59 22:59 Intake Total 360 / 360 Output Total 1050 / 1050 700 / 700 300 / 1000 Balance -1050 / 150 -340 / -340 -300 / -640 Weight last 48 hrs Weight 105.868 kg Weight 104.871 kg Physical Exam 2 Narrative: General: No acute distress, AO x3 HEENT: PERRLA, pupils bilaterally equal and reactive, pallors not present Chest: Normal vesicular breath sounds, no added sounds, equal good air entry bilaterally CVS: S1-S2 regular, no murmurs, no tachycardia, no gallops, no rubs Abdomen: Soft, nontender, no organomegaly, bowel sounds present Neuro: No focal deficits, no facial deformity, AO x3, power 5/5 in all limbs Data 08/28/24 03:09 08/28/24 03:09 Micro: Microbiology 08/26/24 17:35 Urine Culture - Final Urine,Clean Catch A&P Assessment and plan (1) Hypothyroid: Qualifiers: Hypothyroidism type: acquired Qualified Code(s): E03.9 - Hypothyroidism, unspecified (2) BMI 40.0-44.9, adult: (3) Frequency of micturition: (4) Lower extremity pain, bilateral: (5) Spondylolisthesis at L4-L5 level: (6) Lumbar back pain: (7) Primary osteoarthritis of left knee: (8) Lumbar radiculopathy: (9) Obstructive sleep apnea: Plan L4-L5 interbody fusion, insertion of cage No active sign of cauda equina Surgery was done on 08/22 Afebrile, H&H stable Patient is fit that she will not be able to do well at home because she lives off the grid requesting rehab/SNF placement Will keep her on cardiac diet Opioids along bowel regimen Will request PT eval in the morning Social service consult Full code DVT prophylaxis Lovenox 08/25/2024 H&H stable. Patient reports generalized weakness, lower extremity pain and back pain. Afraid to go home. Appropriate disposition planning is ongoing. [place], does not have services at home. States that previously her friend was going to be taking care of her therefore she had planned to be discharged home, however her friend is no longer available to assist in her care. If she goes home she will be a high fall risk, risk of bodily injury. We are therefore starting appropriate disposition planning for this patient. 08/26/2024 UA positive. Tmax 99.2 Fahrenheit. Mild dysuria. Awaiting urine culture. Start ceftriaxone 1 g IV 24 hours empirically for UTI. Continue pain management and appropriate disposition planning. August 27, 2024. Afebrile. Hemodynamically stable. Urine culture pending. Continue ceftriaxone 1 g IV every 24 hours empirically. Continue to work with PT OT. Ongoing appropriate disposition planning as patient is unsafe to be discharged home alone given her instability and decreased endurance. Extremity edema, patient states this is chronic for her. No known history of heart failure. Does not take any diuretics at home. August 28, 2024 Afebrile hemodynamically stable. Urine culture negative. Discontinue ceftriaxone. Continue PT OT. Ongoing disposition planning. BNP negative at 48. Attestations 2 Medical Necessity Statement*: Ongoing appropriate disposition planning. Patient unsafe to return home given unsteady gait, being high fall risk, decreased endurance. Coding Level of Care Code Acute Code for Chg Fwd Moderate MDM includes number and complexity of problems actively addressed during encounter, amount and/or complexity of data reviewed/ordered and described risk of complication, morbidity or mortality of management as documented Diagnoses Acquired hypothyroidism E03.9 Hypothyroidism type: acquired BMI 40.0-44.9, adult Z68.41 Frequency of micturition R35.0 Lower extremity pain, bilateral M79.604; M79.605 Spondylolisthesis at L4-L5 level M43.16 Lumbar back pain M54.50 Primary osteoarthritis of left knee M17.12 Lumbar radiculopathy M54.16 Obstructive sleep apnea G47.33
[2024-08-28] MEDS: enoxaparin 40 mg/0.4 mL Syringe SUBCUT (20:19)
[2024-08-28] MEDS: morphine IR 15 mg Tablet PO (23:29)
[2024-08-29] VITALS (10 sets, daily range): BP systolic 96–132; BP diastolic 60–85; PULSE 68–100; RESP 15–18; TEMP 36.6–36.8; O2SAT 91–98
[2024-08-29] MEDS: ipratropium-albuterol 3 mL Neb INHALATION ×4 (00:38→19:33)
[2024-08-29] MEDS: HYDROcodone-acetaminophen 5-325 mg Tablet 1 TAB PO ×4 (04:12→20:19)
[2024-08-29] MEDS: polyethylene glycol 3350 Pkt 17 gm PO (09:30)
[2024-08-29] MEDS: sennosides-docusate Tablet 1 TAB PO (09:30)
[2024-08-29] MEDS: levothyroxine 112 mcg Tablet PO (09:30)
--- NOTE | 2024-08-29 16:04 | P.PN_ITS ---
Subjective 2 Subjective: No acute interim events. Patient is participating with PT. Medications: Reviewed: Yes Vitals/I&O/Wt Last Vital Signs Temp 98.3 F 08/29/24 12:00 Pulse 73 08/29/24 15:03 Resp 16 08/29/24 15:03 BP 101/67 08/29/24 12:00 Pulse Ox 92 08/29/24 15:03 O2 Del Method Room Air 08/29/24 15:03 FiO2 21 08/26/24 22:05 08/29/24 08/29/24 08/29/24 06:59 14:59 22:59 Intake Total 805 / 805 Output Total 400 / 1400 400 / 400 Balance -400 / -440 405 / 405 Weight last 48 hrs Weight 108.862 kg Weight 105.868 kg Physical Exam 2 Narrative: General: No acute distress, AO x3 HEENT: PERRLA, pupils bilaterally equal and reactive, pallors not present Chest: Normal vesicular breath sounds, no added sounds, equal good air entry bilaterally CVS: S1-S2 regular, no murmurs, no tachycardia, no gallops, no rubs Abdomen: Soft, nontender, no organomegaly, bowel sounds present Neuro: No focal deficits, no facial deformity, AO x3, power 5/5 in all limbs Data 08/28/24 03:09 08/28/24 03:09 A&P Assessment and plan (1) Hypothyroid: Qualifiers: Hypothyroidism type: acquired Qualified Code(s): E03.9 - Hypothyroidism, unspecified (2) BMI 40.0-44.9, adult: (3) Frequency of micturition: (4) Lower extremity pain, bilateral: (5) Spondylolisthesis at L4-L5 level: (6) Lumbar back pain: (7) Primary osteoarthritis of left knee: (8) Lumbar radiculopathy: (9) Obstructive sleep apnea: Plan L4-L5 interbody fusion, insertion of cage No active sign of cauda equina Surgery was done on 08/22 Afebrile, H&H stable Patient is fit that she will not be able to do well at home because she [place] the grid requesting rehab/SNF placement Will keep her on cardiac diet Opioids along bowel regimen Will request PT eval in the morning Social service consult Full code DVT prophylaxis Lovenox 08/25/2024 H&H stable. Patient reports generalized weakness, lower extremity pain and back pain. Afraid to go home. Appropriate disposition planning is ongoing. [place], does not have services at home. States that previously her friend was going to be taking care of her therefore she had planned to be discharged home, however her friend is no longer available to assist in her care. If she goes home she will be a high fall risk, risk of bodily injury. We are therefore starting appropriate disposition planning for this patient. 08/26/2024 UA positive. Tmax 99.2 Fahrenheit. Mild dysuria. Awaiting urine culture. Start ceftriaxone 1 g IV 24 hours empirically for UTI. Continue pain management and appropriate disposition planning. August 27, 2024. Afebrile. Hemodynamically stable. Urine culture pending. Continue ceftriaxone 1 g IV every 24 hours empirically. Continue to work with PT OT. Ongoing appropriate disposition planning as patient is unsafe to be discharged home alone given her instability and decreased endurance. Extremity edema, patient states this is chronic for her. No known history of heart failure. Does not take any diuretics at home. August 28, 2024 Afebrile hemodynamically stable. Urine culture negative. Discontinue ceftriaxone. Continue PT OT. Ongoing disposition planning. BNP negative at 48. August 29, 2024 No acute interim events. Continue PT OT. Ongoing disposition planning. Attestations 2 Medical Necessity Statement*: Ongoing appropriate disposition planning Coding Level of Care Code Acute Code for Chg Fwd Diagnoses Acquired hypothyroidism E03.9 Hypothyroidism type: acquired BMI 40.0-44.9, adult Z68.41 Frequency of micturition R35.0 Lower extremity pain, bilateral M79.604; M79.605 Spondylolisthesis at L4-L5 level M43.16 Lumbar back pain M54.50 Primary osteoarthritis of left knee M17.12 Lumbar radiculopathy M54.16 Obstructive sleep apnea G47.33
[2024-08-29] MEDS: enoxaparin 40 mg/0.4 mL Syringe SUBCUT (20:18)
[2024-08-30] VITALS (7 sets, daily range): BP systolic 97–104; BP diastolic 58–67; PULSE 63–89; RESP 16–18; TEMP 36.8–37; O2SAT 94–97; BMI 48.2
[2024-08-30] MEDS: ipratropium-albuterol 3 mL Neb INHALATION ×2 (02:55→07:35)
[2024-08-30] MEDS: HYDROcodone-acetaminophen 5-325 mg Tablet 1 TAB PO (06:05)
--- NOTE | 2024-08-30 07:57 | PM.PN ---
Subjective Subjective: Patient doing well pain is much improved. Patient getting out of bed by herself. Patient would actually like to go home instead of to a half-way. Vitals/I&O/Wt Last Vital Signs Temp 98.4 F 08/30/24 07:54 Pulse 63 08/30/24 07:54 Resp 18 08/30/24 07:54 BP 101/67 08/30/24 07:54 Pulse Ox 94 08/30/24 07:54 O2 Del Method Room Air 08/30/24 07:54 FiO2 21 08/26/24 22:05 08/29/24 08/30/24 08/30/24 22:59 06:59 14:59 Intake Total 480 / 1285 Output Total 600 / 1000 700 / 1700 Balance -120 / 285 -700 / -415 Weight last 48 hrs Weight 239 lb Weight 240 lb Physical Exam Narrative: Wound was changed. At this point patient has 5-5 strength. Just complaining of some pain in her right lateral thigh. Data 08/28/24 03:09 08/28/24 03:09 A&P Assessment and plan (1) Status post lumbar spinal fusion: Patient is status post fusion. At this point patient is getting in and out of bed by herself ambulating with physical therapy doing well. Patient would like to go home and set up to the half-way. Follow-up in clinic in 2 weeks. Patient has an appointment on September 20. Attestations Medical Necessity Statement*: Per primary service Coding Level of Care Code Acute Code for Chg Fwd Diagnoses Status post lumbar spinal fusion Z98.1
[2024-08-30] MEDS: levothyroxine 112 mcg Tablet PO (08:09)
[2024-08-30] MEDS: sennosides-docusate Tablet 1 TAB PO (08:09)
--- NOTE | 2024-08-30 10:19 | PC.CHAP ---
Pastoral Care Encounter/Spiritual Assessment Type of Contact [] Declined supervisor electronics testing visit [] Patient/Family/Request visit [] Outpatient visit [] Follow-up visit [] Physician referral [] Code/Alert [x] Routine visit [] Staff referral [] Actively dying [] Patient sleeping [] Family support [] [] Out of room [] Palliative care [] [] Receiving care in room [] Pre-surgical visit [] Trauma [] Long length of stay [] ICU visit [] Other: Relational/Emotional Strength [x] Patient feels connected with others/family/visitors/staff [] Distress [] Loneliness/isolation [] Abandonment Spirituality of Patient [x] Person of Pauline [] Attends Baptism of their Pauline [x] Believes in Prayer [] Reads Bible or Quaker materials [] There are Spiritual issues to be addressed Business Development Sales Executive Interventions [x] Prayer [x] Active listening [] Non-anxious presence [x] Spiritual/emotional support [] Crisis/trauma care [] Spiritual counseling [] Bereavement support [] Provided bereavement packet [] Provided Bible/devotional materials [] Provided toy/stuffed animal, coloring book to patient or family member [] Provided Communion [] Anointing/[place] [] Salvation [x] Completed spiritual assessment [] Other: Impact on Illness or Injury [] Angry [] Fearful [] Anxious [] Often cries [] Exhaustion [] Unable to work [] Unable to attend mormon [] Unable to walk/stand [] Unable to read [] Unable to drive [] Unable to eat/drink [] Unable to sleep [] Unable to be with family [] Patient intubated [] Other: Summary Time spent with patient 5 min
--- NOTE | 2024-08-30 13:07 | PM.DCS ---
Discharge Providers Date of Admission: 08/24/24 20:17 Date of Discharge: August 30, 2024 Attending Provider at Admission: Chrissy eKrns MD Attending Provider at Discharge: Jennifer Starkey MD Primary Care Provider: Fernando Burns DO Diagnoses at Discharge Discharge Diagnosis (1) Status post lumbar spinal fusion: Status: Acute Reason for Visit Reason for Visit: unable to lift either leg after surgery Hospital Course Hospital Course Patient presented to the hospital for complaint of weakness. She had a recent laminectomy done L4-L5 fusion cage. She presented back to the hospital with the fear that she will fall since she is feeling weaker and she lives off the grid. She was evaluated by spine surgeon during hospitalization. [facility] facility was being set up. Patient was afraid to go home. She was high fall risk. Urinalysis positive and she was started on ceftriaxone for UTI. She continued to work with physical therapy and improved. Urine culture ultimately was negative. Ceftriaxone was discontinued. Patient's pain improved significantly she was able to get out of bed herself and at this point she change her mind and wanted to go home instead of a skilled nursing. She felt comfortable going home at this time. Patient was discharged home in stable condition with follow-up with spine surgeon in upcoming weeks. She was asked to follow-up with primary care doctor as outpatient. Physical Exam Narrative: General: No acute distress, AO x3 HEENT: PERRLA, pupils bilaterally equal and reactive, pallors not present Chest: Normal vesicular breath sounds, no added sounds, equal good air entry bilaterally CVS: S1-S2 regular, no murmurs, no tachycardia, no gallops, no rubs Abdomen: Soft, nontender, no organomegaly, bowel sounds present Neuro: non focal Discharge Data Studies Completed and Pending Laboratory Results WBC 7.24 10^3/uL (3.29-11.43) 08/28/24 03:09 RBC 3.08 10^6/uL (3.85-5.65) L 08/28/24 03:09 Hgb 9.60 g/dL (11.27-16.99) L 08/28/24 03:09 Hct 30.5 % (36-47) L 08/28/24 03:09 MCV 99.0 fl (85-98) H 08/28/24 03:09 MCH 31.2 pg (27-33) 08/28/24 03:09 MCHC 31.5 g/dL (30-55) 08/28/24 03:09 RDW 13.0 % (12.1-15.1) 08/28/24 03:09 Plt Count 243 10^3/cmm (157-399) 08/28/24 03:09 MPV 9.2 fL (7.4-10.4) 08/28/24 03:09 Neut % (Auto) 47.6 % 08/28/24 03:09 Lymph % (Auto) 37.4 % 08/28/24 03:09 Kings % (Auto) 10.2 % 08/28/24 03:09 Eos % (Auto) 4.1 % 08/28/24 03:09 Baso % (Auto) 0.3 % 08/28/24 03:09 Neut # (Auto) 3.44 10^3/uL (1.8-7.7) 08/28/24 03:09 Lymph # (Auto) 2.7 10^3/uL (0.8-4.8) 08/28/24 03:09 Kings # (Auto) 0.7 10^3/uL (0.2-0.9) 08/28/24 03:09 Eos # (Auto) 0.3 10^3/uL (0.0-0.8) 08/28/24 03:09 Baso # (Auto) 0.0 10^3/uL (0.0-0.1) 08/28/24 03:09 Nucleated RBC % (auto) 0 % 08/28/24 03:09 Nucleated RBCs # 0.0 /100WBC 08/28/24 03:09 Sodium 141 mmol/L (136-145) 08/28/24 03:09 Potassium 4.2 mmol/L (3.5-5.1) 08/28/24 03:09 Chloride 106 mmol/L (98-107) 08/28/24 03:09 Carbon Dioxide 26 mmol/L (22-29) 08/28/24 03:09 Anion Gap 13.2 (5-19) 08/28/24 03:09 BUN 13 mg/dL (8-23) 08/28/24 03:09 Creatinine 0.5 mg/dL (0.5-0.9) 08/28/24 03:09 GFR Calculation 125.4 mL/min (90-130) 08/28/24 03:09 Glucose 107 mg/dL (65-115) 08/28/24 03:09 Calculated Osmolality 293 mOsm/kg (285-295) 08/28/24 03:09 Calcium 8.5 mg/dL (8.5-10.5) 08/28/24 03:09 Magnesium 1.9 mg/dL (1.7-2.3) 08/25/24 03:29 Total Bilirubin 0.3 mg/dL (0.15-1.2) 08/28/24 03:09 AST 26 U/L (0-32) 08/28/24 03:09 ALT 23 U/L (0-33) 08/28/24 03:09 Alkaline Phosphatase 118 U/L (35-105) H 08/28/24 03:09 NT-Pro-B Natriuret Pep 46 pg/mL (0-125) 08/28/24 03:09 Total Protein 5.4 g/dL (6.6-8.7) L 08/28/24 03:09 Albumin 2.9 g/dL (3.5-5.2) L 08/28/24 03:09 Globulin 2.5 g/dL (1.3-4.6) 08/28/24 03:09 Urine Color Yellow (Yellow) 08/24/24 19:42 Urine Appearance Cloudy (CLEAR) A 08/24/24 19:42 Urine pH 5.5 (5-7) 08/24/24 19:42 Ur Specific [place] 1.037 (1.005-1.030) H 08/24/24 19:42 Urine Protein Trace (Negative) A 08/24/24 19:42 Urine Glucose (UA) Negative (Normal) 08/24/24 19:42 Urine Ketones Negative (Negative) 08/24/24 19:42 Urine Blood 1+ (Negative) A 08/24/24 19:42 Urine Nitrate Negative (Negative) 08/24/24 19:42 Urine Bilirubin Negative (Negative) 08/24/24 19:42 Urine Urobilinogen 1.0 mg/dL (Negative) 08/24/24 19:42 Ur Leukocyte Esterase 1+ (Negative) A 08/24/24 19:42 Urine RBC 21-50 /hpf (0-2) H 08/24/24 19:42 Urine WBC 11-20 /hpf (0-5) H 08/24/24 19:42 Ur Squamous Epith Cells 11-20 /hpf (0-5) 08/24/24 19:42 Amorphous Sediment Not Reportable 08/24/24 19:42 Urine Bacteria 4+ /hpf (NONE) H 08/24/24 19:42 Hyaline Casts 6.20 /lpf 08/24/24 19:42 Vitals Last Vital Signs Temp 98.5 F 08/30/24 11:45 Pulse 78 08/30/24 11:45 Resp 17 08/30/24 11:45 BP 104/58 08/30/24 11:45 Pulse Ox 97 08/30/24 11:45 O2 Del Method Room Air 08/30/24 11:45 FiO2 21 08/26/24 22:05 Discharge Plan Discharge Patient Disposition: Home Condition: Stable Prescriptions: Continued diclofenac sodium 1 % gel 2 g topical QID Qty: 100 3RF Rx Instructions: apply to single elbow, wrist or hand; for hand includes palm/fingers/back of hand multivitamin [Daily Multi-Vitamin] Tablet 1 tab PO DAILY mecobalamin (vitamin B12) 1,000 mcg tablet,chewable 1,000 mcg PO DAILY famotidine [Pepcid] 20 mg tablet 40 mg PO BID (DME) Hinged Knee Brace See Rx Instructions .Route .MEDSUPPLY Qty: 1 0RF Rx Instructions: As directed ipratropium-albuterol 0.5 mg-3 mg(2.5 mg base)/3 mL solution for nebulization See Rx Instructions .ROUTE .COMPLEX Qty: 180 3RF Dose Instruction: USE 1 VIAL PER NEBULIZER EVERY 4 HOURS NEEDED FOR SHORTNESS OF BREATH Rx Instructions: USE 1 VIAL PER NEBULIZER EVERY 4 HOURS NEEDED FOR SHORTNESS OF BREATH Spiriva Respimat 1.25 mcg/actuation mist 2 puff inhalation DAILY Qty: 4 3RF budesonide-formoterol [Symbicort] 160-4.5 mcg/actuation HFA aerosol inhaler 2 puff inhalation BID Qty: 10.2 5RF (DME) cpap supplies See Rx Instructions .Route .MEDSUPPLY Qty: 1 5RF Rx Instructions: As directed (DME) Aerochamber MV Spacer See Rx Instructions .Route Qty: 1 0RF Rx Instructions: As directed (DME) Bone Growth Stimulator See Rx Instructions .Route .MEDSUPPLY Qty: 1 0RF Rx Instructions: As directed albuterol sulfate 90 mcg/actuation HFA aerosol inhaler 2 puff inhalation Q4H PRN (Reason: shortness of breath or wheezing) Qty: 8.5 2RF (DME) Bone Growth Stimulator See Rx Instructions .Route .MEDSUPPLY Qty: 1 0RF Rx Instructions: As directed cholecalciferol (vitamin D3) [Vitamin D3] 25 mcg (1,000 unit) Capsule 25 mcg PO DAILY levothyroxine 112 mcg tablet 112 mcg PO DAILY Rx Instructions: TAKE ONE TABLET BY MOUTH ONCE DAILY montelukast 10 mg tablet 10 mg PO DAILY Rx Instructions: TAKE ONE TABLET BY MOUTH ONCE DAILY hydrocodone-acetaminophen 5-325 mg tablet 1 - 2 tab PO .Q4-6H Qty: 40 0RF enzalutamide 80 - 160 mg PO DAILY Rx Instructions: 1 tab daily then 2 tabs starting 09/04/24 Discharge Orders: Discharge Order (Routine); Ordered 08/30/24 Ordered By: Jennifer Starkey Referrals: Isaac Ace DO [Physician] - 09/20/24 2:15 pm Fernando Burns DO [Primary Care Provider] - 4-7 days (We have notified your physician's clinic of the need for a follow-up appointment to be scheduled. If you have not heard from them within the next 2 business days, please call them directly. ) Discharge Diet: Cardiac Discharge Activity: Resume usual activity Patient Instructions: Lumbar Spinal Fusion (GEN), Opioid Safety Discharge Attestations Time Spent in Discharge Care*: greater than 30 min Quality Metrics Clinical Quality Measures [ No reported AMI, CVA or VTE this stay] Coding Level of Care Code Acute Code for Chg Fwd Diagnoses Status post lumbar spinal fusion Z98.1
== END 2024-08-30 14:55 | disposition home or self-care (01) ==
LOC: ER 21:06 → ER IP 21:07 → MEDSURG 08-25 06:18
PROVIDERS: Student in an Organized Health Care Education/Training Program; Admitting Provider Internal Medicine; Emergency Provider Emergency Medicine; PCP Family Medicine; Visit Provider Internal Medicine
DX: R53.1 Weakness (principal); Z98.890 Other specified postprocedural states; Z98.1 Arthrodesis status; E78.5 Hyperlipidemia, unspecified; E03.9 Hypothyroidism, unspecified; R32 Unspecified urinary incontinence; R35.0 Frequency of micturition; G47.33 Obstructive sleep apnea (adult) (pediatric); Z75.1 Person awaiting admission to adequate facility elsewhere
CPT/HCPCS: 36415; 80053; 81001; 83735; 83880; 85025; 87086; 94640; 94660; 94664; 96372; 96374; 97116; 97161; 99291; G0378; J0696; J1650

== ENCOUNTER → 2024-09-20 14:51 | Outpatient (BNVA) | payer MEDICAID, SELFPAY | PROVIDERS: PCP Family Medicine; Visit Provider Orthopaedic Surgery | DX: Z98.1 Arthrodesis status (principal) | CPT/HCPCS: 72100 ==

== ENCOUNTER → 2024-09-27 16:46 | Outpatient (BNVA) | payer MEDICAID, SELFPAY | PROVIDERS: PCP Family Medicine; Visit Provider Orthopaedic Surgery | DX: Z98.1 Arthrodesis status (principal); T81.41XA Infection following a procedure, superficial incisional surgical site, initial encounter; Y83.8 Other surgical procedures as the cause of abnormal reaction of the patient, or of later complication, without mention of misadventure at the time of the procedure | CPT/HCPCS: 36415; 80053; 81001; 85025 ==

== ENCOUNTER 2024-09-30 06:06 | Day surgery (SDC) | payer MEDICAID, SELFPAY ==
[2024-09-30] VITALS (26 sets, daily range): BP systolic 106–148; BP diastolic 70–99; PULSE 64–85; RESP 16–20; TEMP 36.1–36.5; O2SAT 90–99; BMI 48.4
--- NOTE | 2024-09-30 06:22 | ANES.PREANE2 ---
Pre-Anesthetic Assessment Height/Weight: Height 4 ft 11 in Preop Diagnosis: Postop wound infection Operation Date: 09/30/24 07:00 Proposed Procedures p Incision and Drainage of Spine(Not Applicable) - Isaac Ace, DO Was Beta Vicky taken within 24 hours: N/A Was Clonidine taken within 24 hours: N/A Social No alcohol and No tobacco Exam alert, oriented x 3, clear to auscultation bilaterally and regular rate & rhythm Airway Submandibular: within normal limits Cervical ROM: within normal limits Mallampati: Class II Dentition: full Anesthetic Plan ASA status: 3 Anesthesia: General Other: Patient states that she has experienced PONV in the past. did well with last GA in August with anesthesia Gas. Grade I view with Mac 3.5 NPO since yesterday History of asthma, controlled with inhalers GERD on Pepcid Denies any cardiac issues Labs reviewed and acceptable for procedure METs greater than 4 Plan for GETA Medications/Allergies Home Medications Medication Instructions Recorded Confirmed Last Taken Type mecobalamin (vitamin B12) 1,000 1,000 mcg PO DAILY 03/04/23 09/29/24 09/29/24 History mcg chewable tablet multivitamin (Daily Multi-Vitamin 1 tab PO DAILY 03/04/23 09/29/24 08/21/24 History tablet) cholecalciferol (vitamin D3) 25 25 mcg PO DAILY 06/11/23 09/29/24 09/29/24 History mcg (1,000 unit) capsule (Vitamin D3) cpap supplies #1 ea 08/05/23 09/27/24 Unknown Rx Hinged Knee Brace #1 ea 09/30/23 09/27/24 Unknown Rx inhalational spacing device #1 ea 01/04/24 09/27/24 Unknown Rx (Aerochamber MV spacer) ipratropium 0.5 mg-albuterol 3 mg See Rx Instructions .Route 01/05/24 09/29/24 08/22/24 Rx (2.5 mg base)/3 mL nebulization .COMPLEX #180 mL soln budesonide-formoterol HFA 160 2 puff inhalation BID #10.2 grams 03/16/24 09/29/24 09/29/24 Rx mcg-4.5 mcg/actuation aerosol inhaler (Symbicort) tiotropium bromide 1.25 2 puff inhalation DAILY #4 grams 03/16/24 09/29/24 09/29/24 Rx mcg/actuation mist for inhalation (Spiriva Respimat) diclofenac sodium 1 % topical gel 2 g topical QID #100 grams 04/13/24 09/29/24 08/18/24 Rx Bone Growth Stimulator #1 ea 05/18/24 09/27/24 Unknown Rx albuterol sulfate 90 mcg/actuation 2 puff inhalation Q4H PRN 06/23/24 09/30/24 1 Month Ago Rx aerosol inhaler shortness of breath or wheezing ~08/30/24 #8.5 grams famotidine 20 mg tablet (Pepcid) 40 mg PO BID 08/03/24 09/29/24 09/29/24 History levothyroxine 112 mcg tablet 112 mcg PO DAILY 08/18/24 09/29/24 09/29/24 History montelukast 10 mg tablet 10 mg PO DAILY 08/22/24 09/29/24 08/21/24 History Bone Growth Stimulator #1 ea 08/29/24 09/27/24 Unknown Rx sulfamethoxazole 800 1 tab PO BID 14 days #28 tabs 09/20/24 09/29/24 09/29/24 Rx mg-trimethoprim 160 mg tablet (Bactrim DS) hydrocodone 5 mg-acetaminophen 325 1 - 2 tab PO .Q4-6H PRN pain 7 09/26/24 09/29/24 09/29/24 Rx mg tablet days #40 tabs ascorbic acid (vitamin C) 500 mg 500 mg PO DAILY 09/29/24 09/29/24 09/29/24 History tablet (Vitamin C) diphenhydramine HCl 25 mg capsule 25 mg PO TID PRN Itching 09/29/24 09/29/24 09/28/24 History (Benadryl) Allergies Allergy/AdvReac Type Severity Reaction Status Date / Time zolmitriptan [From Zomig] Allergy Severe brain Verified 09/27/24 15:15 swelling seafood Allergy ADR-Gastrointestinal Uncoded 09/29/24 12:53 [facility] Anesthesia Medical History (Updated 09/16/24 @ 07:58 by Arsalan Philip DO) BMI 45.0-49.9, adult Acute pain of right knee Tendinopathy of left rotator cuff Tendinopathy of right rotator cuff GERD (gastroesophageal reflux disease) Migraine Hyperlipidemia Hypothyroid Asthma Bursitis and tendinitis of shoulder region Surgical History (Updated 09/29/24 @ 12:33 by Ciarra Dunn RN) H/O arthroscopic knee surgery right History of section x2 H/O elbow surgery right Family History Father Diabetes Stroke CAD (coronary artery disease) Asthma Mother Dementia CAD (coronary artery disease) Brother Asthma Autism Social History Smoking and tobacco/nicotine status: unknown if used tobacco/nicotine Alcohol intake: former Year of sobriety/quit date alcohol: 1998 Substance/Drug Use: never Lives independently: Yes Household members: children Marital status: Current occupational status: employed Pets and animals: Yes Do you think of yourself as: Straight/Heterosexual Current gender identity: Female Data Anesthesia Cardiac Studies: No Data to Display
--- NOTE | 2024-09-30 06:46 | W.PM.OPSUD ---
Surgery/Procedure H&P Update DATE OF PROCEDURE: September 30, 2024 DATE H&P PERFORMED: 09/27/24 H&P UPDATE INFORMATION: I have reviewed H&P completed within last 30 days, I have examined patient prior to procedure and No changes to prior documentation PREOP DIAGNOSIS: Postop wound infection PLANNED PROCEDURE: Operation Date: 09/30/24 07:00 Proposed Procedures p Incision and Drainage of Spine(Not Applicable) - Isaac Ace DO
[2024-09-30] MEDS: sodium chloride 0.9% 1,000 ML 30 ML IV (06:55)
[2024-09-30] MEDS: ceFAZolin 2,000 mg SDV 2000 MG IVP (07:24)
[2024-09-30] MEDS: VANCOMYCIN ADD-Vantage 1,000 MG VIAL 2000 MG XX (07:42)
--- NOTE | 2024-09-30 08:24 | PM.OP ---
Operative Report Date of procedure: September 30, 2024 Pre-op diagnosis: Superficial wound infection lumbar spine Post-op diagnosis: same Procedure done: Irrigation debridement of skin down to fascia. Wound size is 8 inches x 4 inches x 6 inches deep Surgeon: Isaac Ace DO Estimated blood loss (mL): 20 Procedure: Irrigation debridement of skin down to fascia. Wound size is 8 inches x 4 inches x 6 inches deep Patient brought the op suite after undergoing anesthesia was placed in the prone position. All areas appear well-padded. Patient's primary muscle fashion. Wound edges were cut with sharp dissection with a knife skin edges were completely removed down to the fascia. All necrotic or infected looking tissue was removed remaining tissue was all bleeding. The wound size was about 8 inches long 4 inches wide and 6 inches deep. Bovie is used to coagulate any bleeders. And then vancomycin powder was placed and the wound was closed in a layered fashion with PDS suture and nylon suture. Sterile dressings were applied and patient was transferred to the PACU in good condition.
[2024-09-30] MEDS: fentaNYL 50 mcg/mL INJ 2mL IVP ×2 (08:30→09:00)
[2024-09-30] MEDS: HYDROmorphone 1 mg/mL INJ 1 mL 0.5 MG IVP ×2 (08:55→09:11)
--- NOTE | 2024-09-30 09:05 | SUR.OPER ---
0850 pt experiencing poor pain control with medication. Dr Palencia notified.
[2024-09-30] MEDS: ondansetron 2 mg/ML SDV 2 mL 4 MG IVP ×2 (10:32→10:45)
[2024-09-30] MEDS: metoclopramide 5 mg/mL SDV 2 mL 10 MG IVP (11:24)
--- NOTE | 2024-09-30 12:12 | ANE.PACU2 ---
Inpatient post-anesthesia follow up: Airway intact: Yes Vital signs: Temperature 97.0 F Pulse Rate 79 Respiratory Rate 18 Blood Pressure 134/81 Pulse Oximetry 93 Oxygen Delivery Me thod Room Air Oxygen Flow Rate 1 Fraction of Inspir ed Oxygen Hydration adequate: Yes Nausea and vomiting: Yes (treated) Pain level: 2 Mental status: Baseline
== END 2024-09-30 12:12 | disposition home or self-care (01) ==
PROVIDERS: PCP Family Medicine; Visit Provider Orthopaedic Surgery
PROC: (CPT 11043; principal; 2024-09-30 07:00)
DX: T81.42XA Infection following a procedure, deep incisional surgical site, initial encounter (principal); Y82.8 Other medical devices associated with adverse incidents; J45.909 Unspecified asthma, uncomplicated; K21.9 Gastro-esophageal reflux disease without esophagitis; E78.5 Hyperlipidemia, unspecified; E03.9 Hypothyroidism, unspecified; Z98.890 Other specified postprocedural states
CPT/HCPCS: 11043; 11046; 87070; 87075; 87077; 87186; 87205; J0131; J0330; J0690; J1100; J1171; J1200; J2250; J2405; J2704; J2765; J3010; J3370; J3490; J7030

== ENCOUNTER → 2024-10-04 15:03 | Outpatient (BNVA) | payer MEDICAID, SELFPAY | PROVIDERS: PCP Family Medicine; Visit Provider Orthopaedic Surgery | DX: Z98.1 Arthrodesis status (principal) | CPT/HCPCS: 72100 ==

== ENCOUNTER → 2024-11-10 08:23 | Outpatient (BNVA) | payer MEDICAID, SELFPAY | PROVIDERS: PCP Family Medicine; Visit Provider Orthopaedic Surgery | DX: Z09 Encounter for follow-up examination after completed treatment for conditions other than malignant neoplasm (principal); Z98.1 Arthrodesis status | CPT/HCPCS: 72100 ==

== ENCOUNTER 2024-11-22 06:00 | Outpatient (RCR) | payer MEDICAID, SELFPAY | END 2024-12-12 23:59 | disposition home or self-care (01) | LOC: GPT 06:00 | PROVIDERS: PCP Nurse Practitioner Family; Visit Provider Orthopaedic Surgery | DX: M54.50 Low back pain, unspecified (principal); G89.29 Other chronic pain | CPT/HCPCS: 97161 ==

== ENCOUNTER 2024-12-13 06:00 | Outpatient (RCR) | payer MEDICAID, SELFPAY | END 2025-01-11 23:59 | disposition home or self-care (01) | LOC: GPT 06:00 | PROVIDERS: PCP Nurse Practitioner Family; Visit Provider Orthopaedic Surgery | DX: M54.50 Low back pain, unspecified (principal); G89.29 Other chronic pain | CPT/HCPCS: 97110 ==

== ENCOUNTER → 2024-12-14 11:00 | Outpatient (BNVA) | payer MEDICAID, SELFPAY | PROVIDERS: PCP Nurse Practitioner Family; Visit Provider Nurse Practitioner Family | DX: E55.9 Vitamin D deficiency, unspecified (principal); E78.2 Mixed hyperlipidemia; E03.9 Hypothyroidism, unspecified | CPT/HCPCS: 80053; 80061; 82306; 84443 ==

== ENCOUNTER → 2025-01-25 08:36 | Outpatient (BNVA) | payer MEDICAID, SELFPAY | PROVIDERS: PCP Nurse Practitioner Family; Visit Provider Podiatrist Foot & Ankle Surgery | DX: M79.671 Pain in right foot (principal); M79.672 Pain in left foot; S99.921A Unspecified injury of right foot, initial encounter; M76.822 Posterior tibial tendinitis, left leg; X50.1XXA Overexertion from prolonged static or awkward postures, initial encounter | CPT/HCPCS: 73630 ==

== ENCOUNTER 2025-02-02 11:11 | Outpatient (CLI) | payer MEDICAID, SELFPAY ==
--- NOTE | 2025-02-02 11:40 | MM_ITS ---
WS: [id number] BILATERAL SCREENING DIGITAL TOMOSYNTHESIS MAMMOGRAM WITH CAD HISTORY: Z12.39 - Encounter for other screening for malignant neop... COMPARISON: 09/03/2023, 06/25/2022, 05/21/2022 Bilateral CC and MLO views with tomosynthesis and synthetic mammography submitted. Computer aided detection analyzed. Breast composition: The breasts are almost entirely fatty. No suspicious masses, microcalcifications or architectural distortion. Long-term stability ovoid mass in the upper outer quadrant is probably a lymph node. Benign calcifications in each breast. MM/MM scr BI tomosynthesis [id number] IMPRESSION: BI-RADS: 2 - Benign. FOLLOW UP: 1 Year Follow-up
== END 2025-02-02 11:12 | disposition home or self-care (01) ==
PROVIDERS: PCP Nurse Practitioner Family; Visit Provider Nurse Practitioner Family
DX: Z12.31 Encounter for screening mammogram for malignant neoplasm of breast (principal); Z98.1 Arthrodesis status; R92.313 Mammographic fatty tissue density, bilateral breasts; R92.1 Mammographic calcification found on diagnostic imaging of breast; N63.0 Unspecified lump in unspecified breast; M96.89 Other intraoperative and postprocedural complications and disorders of the musculoskeletal system
CPT/HCPCS: 72100; 77063; 77067

== ENCOUNTER → 2025-03-01 11:06 | Outpatient (BNVA) | payer MEDICAID, SELFPAY | PROVIDERS: PCP Nurse Practitioner Family; Visit Provider Podiatrist Foot & Ankle Surgery | DX: M79.671 Pain in right foot (principal); S99.821A Other specified injuries of right foot, initial encounter; X58.XXXA Exposure to other specified factors, initial encounter | CPT/HCPCS: 73630 ==

== ENCOUNTER → 2025-04-04 09:45 | Outpatient (BNVA) | payer MEDICAID, SELFPAY | PROVIDERS: PCP Nurse Practitioner Family; Visit Provider Nurse Practitioner Family | DX: E03.9 Hypothyroidism, unspecified (principal) | CPT/HCPCS: 84443 ==

== ENCOUNTER → 2025-05-10 09:40 | Outpatient (BNVA) | payer MEDICAID, SELFPAY | PROVIDERS: PCP Nurse Practitioner Family; Visit Provider Specialist | DX: M25.561 Pain in right knee (principal); Z96.651 Presence of right artificial knee joint; E66.813 Obesity, class 3 | CPT/HCPCS: 73560; 73565 ==

== ENCOUNTER → 2025-08-31 10:22 | Outpatient (BNVA) | payer MEDICAID, SELFPAY | PROVIDERS: PCP Nurse Practitioner Family; Visit Provider Orthopaedic Surgery | DX: Z47.89 Encounter for other orthopedic aftercare (principal); Z98.1 Arthrodesis status; W19.XXXA Unspecified fall, initial encounter | CPT/HCPCS: 72100 ==